=== PATIENT | female | born 1965 | race Caucasian/White ===

== ENCOUNTER 2019-04-25 15:18 | Inpatient (IN) | payer MEDICARE ==
[2019-04-25 23:01] VITALS: BP 99/58
[2019-04-25] MEDS ORDERED: Magnesium Hydroxide (MOM) 30 mL UDC PO PRN (23:01)
[2019-04-25] MEDS ORDERED: Maalox 30 mL Cup PO PRN (23:01)
[2019-04-26] MEDS ORDERED: Non-Formulary Item 1 EA (Buspirone Hcl [Buspirone Hcl] 10 MG) PO SCH (09:00)
--- NOTE | 2019-04-27 00:58 | Psychiatric Evaluation ---
DATE OF SERVICE: 04/26/2019 HISTORY OF PRESENT ILLNESS: A 54-year-old female, currently transferred from [place] after clearance to the Geropsych Unit coming from what appears to be a longterm facility, agitation and aggressive behaviors, could not be cared for at a lower level of care. The patient is a pretty poor historian. I really have no idea what she is trying to tell me as she is very tangential and disorganized, nonsensical, telling different stories, essentially flight of ideas. Staff noting she requires a lot of redirection, odd, bizarre, wearing a lot of gloves on her hands. PAST PSYCHIATRIC HISTORY: The patient alludes to having history of bipolar. Per documentation, the patient has a history of bipolar. FAMILY HISTORY: Unclear, poor historian. SOCIAL HISTORY: The patient was born in [place]. States that she is not , no kids. Upon further review of her chart, it seems that perhaps she is actually coming from a [facility], not a longterm facility, so it seems that perhaps she was unruly at a [facility] type shelter facility. The patient not answering questions about any drug or tobacco use, unclear if she drinks or not. 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 MEDICAL HISTORY: Noted including Zyprexa and Remeron. MENTAL STATUS EXAMINATION: Unkempt, bizarre, wearing a lot of gloves, noted to be loud at one point, starts to escalate, starts pointing at me and yelling a lot, not making much sense. Unclear SI or HI, seems psychotic. Poor insight. PROVISIONAL DIAGNOSES: Bipolar. MEDICAL: Please see full H and P. ESTIMATED LENGTH OF STAY: 7-10 days. ASSESSMENT: The patient requiring hospitalization, unruly, agitated, appears unstable tangential and disorganized thought processes, escalates on the unit. Treatment plan includes group as well as milieu therapy. Restart Zyprexa, Remeron. We will make appropriate medication adjustments. CONDITIONS FOR DISCHARGE: Improved mood, improved affect, better control of her mood symptoms and agitation. JOB# [id number]
--- NOTE | 2019-04-27 14:26 | History & Physical ---
ADMIT DATE: 04/26/2019 CHIEF COMPLAINT: Continuation of care of the patient who is medically cleared. HISTORY OF PRESENT ILLNESS: The patient is a 54-year-old female who is medically cleared from [facility] who is a senior care resident, admitted to the Geropsych Unit due to increase in agitation and being sexually inappropriate towards nursing staff at the SNF. For this reason, the patient is now admitted here. PAST MEDICAL HISTORY: Acute renal failure, UTI, major depressive disorder, hypertension, anxiety, bipolar, anemia. PAST SURGICAL HISTORY: Unknown. ALLERGIES: No drug allergies. HOME MEDICATIONS: See medication list. SOCIAL HISTORY: The patient is a senior care resident. The patient also smokes cigarettes. FAMILY HISTORY: Noncontributory. REVIEW OF SYSTEMS: GENERAL: Denies fever or chills. CARDIOVASCULAR: Denies chest pain. RESPIRATORY: Denies shortness of breath. GASTROINTESTINAL: Denies nausea, vomiting, abdominal pain. GENITOURINARY: Denies increased frequency. NEUROLOGIC: No seizures or syncope. All other systems reviewed and are negative. PHYSICAL EXAMINATION: EXTREMITIES: The patient is a well-developed, well-nourished, in no apparent distress. VITAL SIGNS: Temperature 97.7, heart rate 75, blood pressure 92/71, respirations 18, O2 100%. HEENT: Head; normocephalic, atraumatic. NECK: Supple. No mass. LUNGS: Clear bilaterally. ABDOMEN: Soft, nontender. ASSESSMENT: Acute renal failure, hypertension, anxiety, bipolar, anemia. PLAN: Fall precautions being initiated. Continue routine medications. We will continue to follow this patient. [facility]# [id number]
--- NOTE | 2019-04-27 21:09 | Progress Notes ---
DATE: 04/27/2019 SUBJECTIVE: The patient is agitated, labile, demanding, intrusive, throws a glove at me, threatening staff, poor orientation, aggressive at times, posturing, verbally aggressive, anxious, restless, preoccupied, ruminative, asking for smoke breaks all the time. ASSESSMENT: The patient remains symptomatic, unruly, psychotic, disorganized, not really making too much sounds on exam. PLAN: We will continue to monitor. The patient remains agitated, aggressive, very impulsive, unpredictable. We are titrating her dosing of medications. JOB# [id number]
--- NOTE | 2019-04-28 18:32 | Internal Medicine Prog Note ---
Internal Medicine Subjective - Subjective Service Date: 04/28/19 Patient seen and examined:: with staff Patient is:: awake, verbal Per staff patient has:: tolerating meds Internal Medicine Objective - Physical Exam Vitals and I&O: Vital Signs Temp 98.2 F 04/28/19 14:00 Pulse 100 04/28/19 14:00 Resp 20 04/28/19 14:00 BP 105/68 04/28/19 14:00 Pulse Ox 95 04/28/19 14:00 Intake & Output 04/27/19 04/28/19 04/28/19 18:59 06:59 18:59 Intake Total 0425 427 8305 Balance 4266 131 1839 Intake: Oral 7620 745 0767 Other: # Voids 4 2 # Bowel Movements 1 0 1 Active Medications: Current Medications Acetaminophen (Tylenol) 650 mg PO Q4H PRN PRN Reason: Pain (Mild 1-3) Stop: 06/24/19 23:00 Acetaminophen (Tylenol) 650 mg PO Q4H PRN PRN Reason: temp.>100.4 Stop: 06/25/19 01:20 Al Hydrox/Mg Hydrox/Simethicone (Maalox) 30 ml PO Q4HR PRN PRN Reason: GI DISTRESS Stop: 06/24/19 23:00 Buspirone HCl (Buspar) 10 mg PO TID [facility]; Protocol Stop: 06/25/19 08:59 Last Admin: 04/28/19 14:09 Dose: 10 mg Divalproex Sodium (Depakote Dr) 500 mg PO BID [facility]; Protocol Stop: 06/26/19 16:59 Last Admin: 04/28/19 16:17 Dose: 500 mg Gabapentin (Neurontin) 300 mg PO DAILY [facility] Stop: 06/25/19 08:59 Last Admin: 04/28/19 08:12 Dose: 300 mg Lisinopril (Zestril) 20 mg PO DAILY [facility] Stop: 06/25/19 08:59 Last Admin: 04/28/19 08:13 Dose: 20 mg Lorazepam (Ativan) 0.5 mg PO Q4HR PRN; Protocol PRN Reason: Anxiety Stop: 05/25/19 23:00 Last Admin: 04/28/19 16:16 Dose: 0.5 mg Magnesium Hydroxide (Milk Of Magnesia) 30 ml PO HS PRN PRN Reason: Constipation Mirtazapine (Remeron) 15 mg PO HS [facility]; Protocol Stop: 06/25/19 20:59 Last Admin: 04/27/19 21:00 Dose: 15 mg Naproxen (Naprosyn) 500 mg PO BIDWM [facility] Stop: 06/25/19 07:59 Last Admin: 04/28/19 17:24 Dose: 500 mg Olanzapine (Zyprexa) 20 mg PO BID [facility]; Protocol Stop: 06/25/19 08:59 Last Admin: 04/28/19 16:17 Dose: 20 mg Zolpidem Tartrate (Ambien) 5 mg PO HS PRN PRN Reason: Insomnia Stop: 06/24/19 23:00 Last Admin: 04/27/19 21:53 Dose: 5 mg General: alert HEENT: NC/AT, PERRLA Neck: Supple Lungs: CTAB Cardiovascular: RRR, Normal S1, Normal S2, without murmur Abdomen: soft, non-tender, non-distended, positive bowel sound Neurological: alert Internal Medicine Assmt/Plan - Assessment Assessment: ASSESSMENT: Acute renal failure, hypertension, anxiety, bipolar, anemia. - Plan Plan: PLAN: Fall precautions being initiated. Continue routine medications. We will continue to follow this patient.
--- NOTE | 2019-04-28 20:22 | Progress Notes ---
DATE: 04/28/2019 Case was discussed with staff of the patient, reviewed records. Covering for Dr. Crawford. This is a 54-year-old female who was admitted on 04/25/2019, transferred from [place] after clearance for Geropsych Unit from what appears to be a custodial facility because of agitation, aggressive behavior, could not be cared for at a lower level of care. The patient was a poor historian. She has no idea why she is here. The patient with a history of bipolar disorder. When I talked to her, she was rambling. She was going through circles, giving a lot of details that was not needed and had been aggressive at times , verbally aggressive, restless, internally preoccupied. Continues to be unruly, disorganized. She has been compliant with the medication with no side effects, no sedation, no nausea, and no extrapyramidal symptoms. She is on BuSpar 10 mg 3 times a day, Depakote 500 mg twice a day, and Remeron 15 mg at bedtime and olanzapine 20 mg twice a day with no side effects, no sedation, no nausea, no extrapyramidal symptoms. We will continue the patient in group therapy, milieu therapy, and adjust medications as needed. JOB# [id number] [facility]
--- NOTE | 2019-04-29 11:55 | Progress Notes ---
DATE: 04/29/2019 Case was discussed with staff of the patient, reviewed records. The patient continues to be rambling, easily agitated, and continues to have aggressive behavior at times. Continues to need redirection. Continues to be unable to make safe plan for self-care. She is compliant with the medication with no side effects, no sedation, no nausea, and no extrapyramidal symptoms. We will ____ because of agitated, manic behavior, confused behavior. We will continue the patient in group therapy, milieu therapy, and adjust medications as needed. JOB# [id number]
--- NOTE | 2019-04-29 13:11 | Internal Medicine Prog Note ---
Internal Medicine Subjective - Subjective Service Date: 04/29/19 Patient seen and examined:: with staff, chart reviewed Patient is:: awake, verbal, agitated, confused Patient Complaints of:: other (hx of Htn.) Per staff patient has:: no adverse event, no episodes of fall, tolerating meds Internal Medicine Objective - Physical Exam Vitals and I&O: Vital Signs Temp 98.4 F 04/29/19 06:18 Pulse 89 04/29/19 06:18 Resp 18 04/29/19 08:00 BP 102/60 04/29/19 06:18 Pulse Ox 98 04/29/19 06:18 Intake & Output 04/28/19 04/29/19 04/29/19 18:59 06:59 18:59 Intake Total 1200 240 Output Total 1 Balance 1200 239 Intake: Oral 1200 240 Output: Urine/Stool Mix 1 Other: # Voids 1 # Bowel Movements 1 Active Medications: Current Medications Acetaminophen (Tylenol) 650 mg PO Q4H PRN PRN Reason: Pain (Mild 1-3) Stop: 06/24/19 23:00 Last Admin: 04/28/19 21:29 Dose: 650 mg Acetaminophen (Tylenol) 650 mg PO Q4H PRN PRN Reason: temp.>100.4 Stop: 06/25/19 01:20 Al Hydrox/Mg Hydrox/Simethicone (Maalox) 30 ml PO Q4HR PRN PRN Reason: GI DISTRESS Stop: 06/24/19 23:00 Buspirone HCl (Buspar) 10 mg PO TID [facility]; Protocol Stop: 06/25/19 08:59 Last Admin: 04/29/19 08:32 Dose: 10 mg Divalproex Sodium (Depakote Dr) 500 mg PO BID [facility]; Protocol Stop: 06/26/19 16:59 Last Admin: 04/29/19 08:32 Dose: 500 mg Gabapentin (Neurontin) 300 mg PO DAILY [facility] Stop: 06/25/19 08:59 Last Admin: 04/29/19 08:33 Dose: 300 mg Lisinopril (Zestril) 20 mg PO DAILY [facility] Stop: 06/25/19 08:59 Last Admin: 04/29/19 08:33 Dose: Not Given Lorazepam (Ativan) 0.5 mg PO Q4HR PRN; Protocol PRN Reason: Anxiety Stop: 05/25/19 23:00 Last Admin: 04/28/19 16:16 Dose: 0.5 mg Magnesium Hydroxide (Milk Of Magnesia) 30 ml PO HS PRN PRN Reason: Constipation Mirtazapine (Remeron) 15 mg PO HS [facility]; Protocol Stop: 06/25/19 20:59 Last Admin: 04/28/19 21:29 Dose: 15 mg Naproxen (Naprosyn) 500 mg PO BIDWM [facility] Stop: 06/25/19 07:59 Last Admin: 04/29/19 08:33 Dose: 500 mg Olanzapine (Zyprexa) 20 mg PO BID [facility]; Protocol Stop: 06/25/19 08:59 Last Admin: 04/29/19 08:32 Dose: 20 mg Zolpidem Tartrate (Ambien) 5 mg PO HS PRN PRN Reason: Insomnia Stop: 06/24/19 23:00 Last Admin: 04/28/19 21:29 Dose: 5 mg Physical Exam: Patient needs close monitoring, patient remains very aggressive, irritable, manic behavior. General: alert HEENT: NC/AT, PERRLA Neck: Supple Lungs: CTAB Cardiovascular: RRR, Normal S1, Normal S2, without murmur Abdomen: soft, non-tender, non-distended, distended, positive bowel sound Extremities: clear Neurological: alert Internal Medicine Assmt/Plan - Assessment Assessment: Bipolar disorder. Acute renal failure. Hypertension. Anxiety. Anemia. - Plan Plan: Continue present meds as directed. Monitor vitals and labs. Supportive care. Psych management as per Psych. Pain management. Monitor diet and nutritional support. Continue current treatment plan as ordered. Nutritional Asmnt/Malnutr-PDOC - Dietary Evaluation Malnutrition Findings (Please click <Entered> for more info): see orders.
--- NOTE | 2019-04-30 08:43 | Progress Notes ---
DATE: 04/30/2019 SUBJECTIVE: The patient was seen in the hallway. The patient was wandering around. The patient still has some poor impulse control and impulsive behaviors. Otherwise, the patient appears to be in no acute distress. OBJECTIVE: VITAL SIGNS: Temperature 97.8, heart rate 91, respirations 19, blood pressure 133/76, 97% on room air. HEENT: Head is atraumatic and normocephalic. Eyes: Bilateral conjunctivae are clear. Bilateral pupils are equally round and reactive. NECK: Supple. No JVD. CARDIOVASCULAR: S1 and S2, without murmur. PULMONARY: Clear to auscultation. GASTROINTESTINAL: Soft and nontender without guarding. Positive bowel sounds. MUSCULOSKELETAL: No clubbing. No cyanosis noted. ASSESSMENT: 1. Bipolar disorder. 2. Hypertension. 3. Anemia. PLAN: We will keep the patient inpatient to Psychiatric Unit. We will put the patient on fall precautions. Treatment plans were discussed with the patient's nurse. Treatment plans were discussed with Dr. Ocnonell. JOB# [id number]
--- NOTE | 2019-04-30 19:30 | Progress Notes ---
DATE: 04/30/2019 Case was discussed with staff of the patient, reviewed records. The patient continues to have poor insight, easily agitated, very intrusive, loud, needing redirection, unable to make safe plan for self-care or participate in meaningful conversation. She is compliant with the medication with no side effects, no sedation, no nausea, no extrapyramidal symptoms. We will continue the patient in group therapy, milieu therapy, adjust medication as needed. JOB# [id number]
--- NOTE | 2019-05-01 14:07 | Internal Medicine Prog Note ---
Internal Medicine Subjective - Subjective Service Date: 05/01/19 Patient seen and examined:: with staff Patient is:: awake, verbal, agitated, confused Patient Complaints of:: other (hx of Htn.) Per staff patient has:: no adverse event, no episodes of fall, tolerating meds Internal Medicine Objective - Physical Exam Vitals and I&O: Vital Signs Temp 98.4 F 05/01/19 06:58 Pulse 98 05/01/19 08:39 Resp 19 05/01/19 06:58 BP 108/59 05/01/19 08:39 Pulse Ox 99 05/01/19 06:58 Intake & Output 04/30/19 05/01/19 05/01/19 18:59 06:59 18:59 Intake Total 1000 360 Balance 1000 360 Intake: Oral 1000 360 Other: # Voids 4 1 # Bowel Movements 1 Active Medications: Current Medications Acetaminophen (Tylenol) 650 mg PO Q4H PRN PRN Reason: Pain (Mild 1-3) Stop: 06/24/19 23:00 Last Admin: 04/29/19 20:46 Dose: 650 mg Acetaminophen (Tylenol) 650 mg PO Q4H PRN PRN Reason: temp.>100.4 Stop: 06/25/19 01:20 Al Hydrox/Mg Hydrox/Simethicone (Maalox) 30 ml PO Q4HR PRN PRN Reason: GI DISTRESS Stop: 06/24/19 23:00 Buspirone HCl (Buspar) 10 mg PO TID [facility]; Protocol Stop: 06/25/19 08:59 Last Admin: 05/01/19 13:02 Dose: 10 mg Divalproex Sodium (Depakote Dr) 500 mg PO BID [facility]; Protocol Stop: 06/26/19 16:59 Last Admin: 05/01/19 08:37 Dose: 500 mg Gabapentin (Neurontin) 300 mg PO DAILY [facility] Stop: 06/25/19 08:59 Last Admin: 05/01/19 08:38 Dose: 300 mg Lisinopril (Zestril) 20 mg PO DAILY [facility] Stop: 06/25/19 08:59 Last Admin: 05/01/19 08:39 Dose: Not Given Lorazepam (Ativan) 0.5 mg PO Q4HR PRN; Protocol PRN Reason: Anxiety Stop: 05/25/19 23:00 Last Admin: 02/22/20 13:45 Dose: 0.5 mg Magnesium Hydroxide (Milk Of Magnesia) 30 ml PO HS PRN PRN Reason: Constipation Mirtazapine (Remeron) 15 mg PO HS [facility]; Protocol Stop: 06/25/19 20:59 Last Admin: 04/30/19 21:05 Dose: 15 mg Naproxen (Naprosyn) 500 mg PO BIDWM [facility] Stop: 06/25/19 07:59 Last Admin: 05/01/19 08:38 Dose: 500 mg Olanzapine (Zyprexa) 20 mg PO BID [facility]; Protocol Stop: 06/25/19 08:59 Last Admin: 05/01/19 08:36 Dose: 20 mg Zolpidem Tartrate (Ambien) 5 mg PO HS PRN PRN Reason: Insomnia Stop: 06/24/19 23:00 Last Admin: 04/30/19 21:05 Dose: 5 mg Physical Exam: Patient needs close monitoring, patient is very demented, easily frustrated and agitated. General: alert HEENT: NC/AT, PERRLA Neck: Supple Lungs: CTAB Cardiovascular: RRR, Normal S1, Normal S2, without murmur Abdomen: soft, non-tender, non-distended, distended, positive bowel sound Extremities: clear Neurological: alert Internal Medicine Assmt/Plan - Assessment Assessment: Bipolar disorder. Acute renal failure. Hypertension. Anxiety. Anemia. - Plan Plan: Continue present meds as directed. Monitor vitals and labs. Supportive care. Psych management as per Psych. Pain management. Monitor diet and nutritional support. Continue current treatment plan as ordered. Nutritional Asmnt/Malnutr-PDOC - Dietary Evaluation Malnutrition Findings (Please click <Entered> for more info): Nutritional Asmnt/Malnutrition Start: 05/01/19 12: 37 Text: Status: Complete Freq: Protocol: Document 05/01/19 12:38 GALINA (Rec: 05/01/19 12:40 GALINA [id number]) Nutritional Asmnt/Malnutrition Patient General Information Nutritional Screening Low Risk Diagnosis Psychosis Pertinent Medical Hx/Surgical Hx Acute Renal Failure, UTI, Major Depressive disorder, HTN , Anxiety, Bipolar, Anemia. Subjective Information Pt is a 54-year-old female admitted on 04/25 d/t increased agitation and sexual inappropriateness toward medical staff. Pt is eating an estimated 88% of meals since admit date (x5 days) Per Meal/ Nutrition Activity Record. Dietary is currently providing an estimated 1940 kcals and 80 gm Pro, per Pt PO intake this is providing an estimated 1700 kcals and 70gm Pro to meet 100% kcal and 100% Pro needs. Visited pt in community room today, she gave me her food preferences and said she wanted a chocolate Ensure as a snack because another pt next to her was having one. Gave her an Ensure. Pt is loud and gets agitated easily, was yelling at another pt, telling him to be quiet when we were talking. Pt is eating well and meeting estimated nutritional needs. Pt has Altered nutrition related labs r/t renal dysfunction aeb Hx ARF and labs (04/25): BUN/Cr 21/1.67, GFR 34. Will continue to monitor renal related labs and make further recommendations should K, P, or Ca levels elevate, [place] already included in current Diet Rx. Anthropometrics HT: 59 WT: 142 LB (64.55 kg) BMI: 21.02 (Normal) GI/ Skin Integrity GI: WNL, Soft, Flat, Non- tender BM: 04/30 x1 I/O: 1360/Not Noted Skin: WNL, Intact Braulio: 20 Diet Order: Mechanical Soft, [place] Estimated Energy Needs: ( Geriatric, CBW) 8806-2365 kcals (25-30 kcals/ kg) 65-80g Pro (1.0-1.2 g/kg) 8548-4721 ml (25-30 ml/kg) Current Diet Order/ Nutrition Support Mechanical Soft, [place] Pertinent Medications Maalox (PRN), MOM (PRN) Pertinent Labs 04/25: A1c 5.5%, Na 133, Glucose 100, BUN/Cr 21/1.67, GFR 34, Tags 152, HDL 38, Hgb/ Hct 10.5/31.4 Nutritional Hx/Data Height 1.75 m Height (Calculated Centimeters) 175.3 Current Weight (lbs) 64.41 kg Weight (Calculated Kilograms) 64.4 Weight (Calculated Grams) 14742.1 Wesley Body Weight 145 LB (65.91 kg) % [place] Body Weight 98 Body Mass Index (BMI) 20.9 Weight Status Approriate GI Symptoms Last BM 04/30 x1 Skin Integrity/Comment: Skin: WNL, Intact Braulio: 20 Current %PO Good (75-100%) Estimated Nutritional Goals BEE in Kcals: Using Current wt Calories/Kcals/Kg 25-30 Kcals Calculated 5344-5844 Protein: Using Current wt Protein g/k.0-1.2 Protein Calculated 65-80 Fluid: ml 6744-4732 ml (25-30 ml/kg) Nutritional Problem 1. Problem Problem Altered nutrition related labs Etiology r/t renal dysfunction Signs/Symptoms: aeb Hx ARF and labs (04/25): BUN/Cr 21/1.67, GFR 34. Malnutrition Related to Morbid Obesity Malnutrition related to morbid obesity No Intervention/Recommendation Comments Continue Mechanical Soft, [place] diet as tolerated. Expected Outcomes/Goals Expected Outcomes/Goals 1.PO intake to continue to meet >75% of estimated nutritional needs. 2.Monitor PO intake, wt, nutrition related labs, and skin integrity. 3.F/U as low risk in 7-10 days , 05/07-05/09.
--- NOTE | 2019-05-01 20:15 | Progress Notes ---
DATE: 05/01/2019 Case was discussed with staff of the patient, reviewed records. The patient continues to be very intrusive, loud, hyperverbal, hard to redirect. She is sleeping well, eating well. No side effects with the medication, no sedation, no nausea, no extrapyramidal symptoms. We will continue outpatient group therapy, milieu therapy, adjust medication as needed. JOB# [id number]
--- NOTE | 2019-05-02 11:02 | Internal Medicine Prog Note ---
Internal Medicine Subjective - Subjective Service Date: 05/01/19 Patient seen and examined:: with staff, chart reviewed Patient is:: awake, verbal, agitated, confused Patient Complaints of:: other (hx of Htn.) Per staff patient has:: no adverse event, no episodes of fall, tolerating meds Internal Medicine Objective - Physical Exam Vitals and I&O: Vital Signs Temp 97.2 F 05/02/19 06:33 Pulse 72 05/02/19 08:44 Resp 18 05/02/19 08:00 BP 112/69 05/02/19 08:44 Pulse Ox 100 05/02/19 06:33 Intake & Output 05/01/19 05/02/19 05/02/19 18:59 06:59 18:59 Intake Total 1400 120 Balance 1400 120 Intake: Oral 1400 120 Other: # Voids 5 3 # Bowel Movements 1 Active Medications: Current Medications Acetaminophen (Tylenol) 650 mg PO Q4H PRN PRN Reason: Pain (Mild 1-3) Stop: 06/24/19 23:00 Last Admin: 04/29/19 20:46 Dose: 650 mg Acetaminophen (Tylenol) 650 mg PO Q4H PRN PRN Reason: temp.>100.4 Stop: 06/25/19 01:20 Al Hydrox/Mg Hydrox/Simethicone (Maalox) 30 ml PO Q4HR PRN PRN Reason: GI DISTRESS Stop: 06/24/19 23:00 Buspirone HCl (Buspar) 10 mg PO TID [facility]; Protocol Stop: 06/25/19 08:59 Last Admin: 05/02/19 08:43 Dose: 10 mg Divalproex Sodium (Depakote Dr) 500 mg PO BID [facility]; Protocol Stop: 06/26/19 16:59 Last Admin: 05/02/19 08:43 Dose: 500 mg Gabapentin (Neurontin) 300 mg PO DAILY [facility] Stop: 06/25/19 08:59 Last Admin: 05/02/19 08:44 Dose: 300 mg Lisinopril (Zestril) 20 mg PO DAILY [facility] Stop: 06/25/19 08:59 Last Admin: 05/02/19 08:44 Dose: 20 mg Lorazepam (Ativan) 0.5 mg PO Q4HR PRN; Protocol PRN Reason: Anxiety Stop: 05/25/19 23:00 Last Admin: 05/01/19 15:44 Dose: 0.5 mg Magnesium Hydroxide (Milk Of Magnesia) 30 ml PO HS PRN PRN Reason: Constipation Mirtazapine (Remeron) 15 mg PO HS [facility]; Protocol Stop: 06/25/19 20:59 Last Admin: 05/01/19 20:09 Dose: 15 mg Naproxen (Naprosyn) 500 mg PO BIDWM [facility] Stop: 06/25/19 07:59 Last Admin: 05/02/19 08:44 Dose: 500 mg Olanzapine (Zyprexa) 20 mg PO BID [facility]; Protocol Stop: 06/25/19 08:59 Last Admin: 05/02/19 08:44 Dose: 20 mg Zolpidem Tartrate (Ambien) 5 mg PO HS PRN PRN Reason: Insomnia Stop: 06/24/19 23:00 Last Admin: 05/01/19 20:09 Dose: 5 mg Physical Exam: Patient needs close monitoring, patient is anxious, irritable and easily agitated. General: alert HEENT: NC/AT, PERRLA Neck: Supple Lungs: CTAB Cardiovascular: RRR, Normal S1, Normal S2, without murmur Abdomen: soft, non-tender, non-distended, distended, positive bowel sound Extremities: clear Neurological: alert Internal Medicine Assmt/Plan - Assessment Assessment: Bipolar disorder. Acute renal failure. Hypertension. Anxiety. Anemia. - Plan Plan: ontinue present meds as directed. Monitor vitals and labs. Supportive care. Psych management as per Psych. Pain management. Monitor diet and nutritional support. Continue current treatment plan as ordered. Nutritional Asmnt/Malnutr-PDOC - Dietary Evaluation Malnutrition Findings (Please click <Entered> for more info): Nutritional Asmnt/Malnutrition Start: 05/01/19 12: 37 Text: Status: Complete Freq: Protocol: Document 05/01/19 12:38 GALINA (Rec: 05/01/19 12:40 GALINA [id number]) Nutritional Asmnt/Malnutrition Patient General Information Nutritional Screening Low Risk Diagnosis Psychosis Pertinent Medical Hx/Surgical Hx Acute Renal Failure, UTI, Major Depressive disorder, HTN , Anxiety, Bipolar, Anemia. Subjective Information Pt is a 54-year-old female admitted on 04/25 d/t increased agitation and sexual inappropriateness toward medical staff. Pt is eating an estimated 88% of meals since admit date (x5 days) Per Meal/ Nutrition Activity Record. Dietary is currently providing an estimated 1940 kcals and 80 gm Pro, per Pt PO intake this is providing an estimated 1700 kcals and 70gm Pro to meet 100% kcal and 100% Pro needs. Visited pt in community room today, she gave me her food preferences and said she wanted a chocolate Ensure as a snack because another pt next to her was having one. Gave her an Ensure. Pt is loud and gets agitated easily, was yelling at another pt, telling him to be quiet when we were talking. Pt is eating well and meeting estimated nutritional needs. Pt has Altered nutrition related labs r/t renal dysfunction aeb Hx ARF and labs (04/25): BUN/Cr 21/1.67, GFR 34. Will continue to monitor renal related labs and make further recommendations should K, P, or Ca levels elevate, [place] already included in current Diet Rx. Anthropometrics HT: 59 WT: 142 LB (64.55 kg) BMI: 21.02 (Normal) GI/ Skin Integrity GI: WNL, Soft, Flat, Non- tender BM: 04/30 x1 I/O: 1360/Not Noted Skin: WNL, Intact Braulio: 20 Diet Order: Mechanical Soft, [place] Estimated Energy Needs: ( Geriatric, CBW) 1600-2857 kcals (25-30 kcals/ kg) 65-80g Pro (1.0-1.2 g/kg) 6865-6473 ml (25-30 ml/kg) Current Diet Order/ Nutrition Support Mechanical Soft, [place] Pertinent Medications Maalox (PRN), MOM (PRN) Pertinent Labs 04/25: A1c 5.5%, Na 133, Glucose 100, BUN/Cr 21/1.67, GFR 34, Tags 152, HDL 38, Hgb/ Hct 10.5/31.4 Nutritional Hx/Data Height 1.75 m Height (Calculated Centimeters) 175.3 Current Weight (lbs) 64.41 kg Weight (Calculated Kilograms) 64.4 Weight (Calculated Grams) 58121.1 [place] Body Weight 145 LB (65.91 kg) % [place] Body Weight 98 Body Mass Index (BMI) 20.9 Weight Status Approriate GI Symptoms Last BM 04/30 x1 Skin Integrity/Comment: Skin: WNL, Intact Braulio: 20 Current %PO Good (75-100%) Estimated Nutritional Goals BEE in Kcals: Using Current wt Calories/Kcals/Kg 25-30 Kcals Calculated 1485-2368 Protein: Using Current wt Protein g/k.0-1.2 Protein Calculated 65-80 Fluid: ml 6174-8029 ml (25-30 ml/kg) Nutritional Problem 1. Problem Problem Altered nutrition related labs Etiology r/t renal dysfunction Signs/Symptoms: aeb Hx ARF and labs (04/25): BUN/Cr 21/1.67, GFR 34. Malnutrition Related to Morbid Obesity Malnutrition related to morbid obesity No Intervention/Recommendation Comments Continue Mechanical Soft, [place] diet as tolerated. Expected Outcomes/Goals Expected Outcomes/Goals 1.PO intake to continue to meet >75% of estimated nutritional needs. 2.Monitor PO intake, wt, nutrition related labs, and skin integrity. 3.F/U as low risk in 7-10 days , 05/07-05/09.
--- NOTE | 2019-05-02 15:03 | Progress Notes ---
DATE: 05/02/2019 Case was discussed with staff of the patient, reviewed records. The patient continues to be hyperverbal. Continues to be loud, hard to redirect, sleeping better, and eating better. Working on discharge plan. I will be increasing her BuSpar dose 20 mg 3 times a day to help improve anxiety or agitated behavior. No side effects with the medication, no sedation, no nausea, no extrapyramidal symptoms. We will continue outpatient group therapy, milieu therapy, and adjust medication as needed. JOB# [id number]
--- NOTE | 2019-05-03 12:26 | Internal Medicine Prog Note ---
Internal Medicine Subjective - Subjective Service Date: 05/03/19 Patient seen and examined:: with staff, chart reviewed Patient is:: awake, verbal, agitated, confused Patient Complaints of:: other (hx of Htn.) Per staff patient has:: no adverse event, no episodes of fall, tolerating meds Internal Medicine Objective - Physical Exam Vitals and I&O: Vital Signs Temp 97.2 F 05/02/19 20:51 Pulse 95 05/02/19 20:51 Resp 20 05/02/19 20:51 BP 94/77 05/02/19 20:51 Pulse Ox 99 05/02/19 20:51 Intake & Output 05/02/19 05/03/19 05/03/19 18:59 06:59 18:59 Intake Total 1200 240 Balance 1200 240 Intake: Oral 1200 240 Other: # Voids 4 2 # Bowel Movements 1 Active Medications: Current Medications Acetaminophen (Tylenol) 650 mg PO Q4H PRN PRN Reason: Pain (Mild 1-3) Stop: 06/24/19 23:00 Last Admin: 04/29/19 20:46 Dose: 650 mg Acetaminophen (Tylenol) 650 mg PO Q4H PRN PRN Reason: temp.>100.4 Stop: 06/25/19 01:20 Al Hydrox/Mg Hydrox/Simethicone (Maalox) 30 ml PO Q4HR PRN PRN Reason: GI DISTRESS Stop: 06/24/19 23:00 Buspirone HCl (Buspar) 20 mg PO TID [facility]; Protocol Stop: 07/01/19 13:59 Last Admin: 05/03/19 08:02 Dose: 20 mg Divalproex Sodium (Depakote Dr) 500 mg PO BID [facility]; Protocol Stop: 06/26/19 16:59 Last Admin: 05/03/19 08:02 Dose: 500 mg Gabapentin (Neurontin) 300 mg PO DAILY [facility] Stop: 06/25/19 08:59 Last Admin: 05/03/19 08:01 Dose: 300 mg Lisinopril (Zestril) 20 mg PO DAILY [facility] Stop: 06/25/19 08:59 Last Admin: 05/02/19 08:44 Dose: 20 mg Magnesium Hydroxide (Milk Of Magnesia) 30 ml PO HS PRN PRN Reason: Constipation Mirtazapine (Remeron) 15 mg PO HS [facility]; Protocol Stop: 06/25/19 20:59 Last Admin: 05/02/19 20:32 Dose: 15 mg Naproxen (Naprosyn) 500 mg PO BIDWM [facility] Stop: 06/25/19 07:59 Last Admin: 05/03/19 08:05 Dose: 500 mg Olanzapine (Zyprexa) 20 mg PO BID [facility]; Protocol Stop: 06/25/19 08:59 Last Admin: 05/03/19 08:01 Dose: 20 mg Physical Exam: Patient needs close monitoring, patient is restless, easily frustrated. General: alert HEENT: NC/AT, PERRLA Neck: Supple Lungs: CTAB Cardiovascular: RRR, Normal S1, Normal S2, without murmur Abdomen: soft, non-tender, non-distended, distended, positive bowel sound Extremities: clear Neurological: alert Internal Medicine Assmt/Plan - Assessment Assessment: Bipolar disorder. Acute renal failure. Hypertension. Anxiety. Anemia. - Plan Plan: Continue present meds as directed. Monitor vitals and labs. Supportive care. Psych management as per Psych. Pain management. Monitor diet and nutritional support. Continue present care management. Nutritional Asmnt/Malnutr-PDOC - Dietary Evaluation Malnutrition Findings (Please click <Entered> for more info): Nutritional Asmnt/Malnutrition Start: 05/01/19 12: 37 Text: Status: Complete Freq: Protocol: Document 05/01/19 12:38 GALINA (Rec: 05/01/19 12:40 GALINA [id number]) Nutritional Asmnt/Malnutrition Patient General Information Nutritional Screening Low Risk Diagnosis Psychosis Pertinent Medical Hx/Surgical Hx Acute Renal Failure, UTI, Major Depressive disorder, HTN , Anxiety, Bipolar, Anemia. Subjective Information Pt is a 54-year-old female admitted on 04/25 d/t increased agitation and sexual inappropriateness toward medical staff. Pt is eating an estimated 88% of meals since admit date (x5 days) Per Meal/ Nutrition Activity Record. Dietary is currently providing an estimated 1940 kcals and 80 gm Pro, per Pt PO intake this is providing an estimated 1700 kcals and 70gm Pro to meet 100% kcal and 100% Pro needs. Visited pt in community room today, she gave me her food preferences and said she wanted a chocolate Ensure as a snack because another pt next to her was having one. Gave her an Ensure. Pt is loud and gets agitated easily, was yelling at another pt, telling him to be quiet when we were talking. Pt is eating well and meeting estimated nutritional needs. Pt has Altered nutrition related labs r/t renal dysfunction aeb Hx ARF and labs (04/25): BUN/Cr 21/1.67, GFR 34. Will continue to monitor renal related labs and make further recommendations should K, P, or Ca levels elevate, [place] already included in current Diet Rx. Anthropometrics HT: 59 WT: 142 LB (64.55 kg) BMI: 21.02 (Normal) GI/ Skin Integrity GI: WNL, Soft, Flat, Non- tender BM: 04/30 x1 I/O: 1360/Not Noted Skin: WNL, Intact Braulio: 20 Diet Order: Mechanical Soft, [place] Estimated Energy Needs: ( Geriatric, CBW) 0455-0954 kcals (25-30 kcals/ kg) 65-80g Pro (1.0-1.2 g/kg) 1536-8502 ml (25-30 ml/kg) Current Diet Order/ Nutrition Support Mechanical Soft, [place] Pertinent Medications Maalox (PRN), MOM (PRN) Pertinent Labs 04/25: A1c 5.5%, Na 133, Glucose 100, BUN/Cr 21/1.67, GFR 34, Tags 152, HDL 38, Hgb/ Hct 10.5/31.4 Nutritional Hx/Data Height 1.75 m Height (Calculated Centimeters) 175.3 Current Weight (lbs) 64.41 kg Weight (Calculated Kilograms) 64.4 Weight (Calculated Grams) 66956.1 [place] Body Weight 145 LB (65.91 kg) % [place] Body Weight 98 Body Mass Index (BMI) 20.9 Weight Status Approriate GI Symptoms Last BM 04/30 x1 Skin Integrity/Comment: Skin: WNL, Intact Braulio: 20 Current %PO Good (75-100%) Estimated Nutritional Goals BEE in Kcals: Using Current wt Calories/Kcals/Kg 25-30 Kcals Calculated 3821-5615 Protein: Using Current wt Protein g/k.0-1.2 Protein Calculated 65-80 Fluid: ml 2187-0440 ml (25-30 ml/kg) Nutritional Problem 1. Problem Problem Altered nutrition related labs Etiology r/t renal dysfunction Signs/Symptoms: aeb Hx ARF and labs (04/25): BUN/Cr 21/1.67, GFR 34. Malnutrition Related to Morbid Obesity Malnutrition related to morbid obesity No Intervention/Recommendation Comments Continue Mechanical Soft, [place] diet as tolerated. Expected Outcomes/Goals Expected Outcomes/Goals 1.PO intake to continue to meet >75% of estimated nutritional needs. 2.Monitor PO intake, wt, nutrition related labs, and skin integrity. 3.F/U as low risk in 7-10 days , 05/07-05/09.
--- NOTE | 2019-05-04 01:04 | Progress Notes ---
DATE: 05/03/2019 Case was discussed with staff of the patient, reviewed records. The patient continues to have poor insight, loud, intrusive, hard to redirect. Continues to have poor insight, unable to make safe plan for self-care. She is sleeping well, eating well. She has a conservator. She will be going back to a nursing facility. She is ready to go. No side effects with the medications, no sedation, no nausea. No extrapyramidal symptoms. We will continue outpatient group therapy, milieu therapy and adjust the medications as needed. JOB# [id number]
--- NOTE | 2019-05-04 13:37 | Internal Medicine Prog Note ---
Internal Medicine Subjective - Subjective Service Date: 05/04/19 Patient seen and examined:: with staff, chart reviewed Patient is:: awake, verbal, agitated, confused Patient Complaints of:: other (hx of Htn.) Per staff patient has:: no adverse event, no episodes of fall, tolerating meds Internal Medicine Objective - Physical Exam Vitals and I&O: Vital Signs Temp 97.8 F 05/04/19 06:44 Pulse 110 05/04/19 08:24 Resp 20 05/04/19 08:00 BP 108/67 05/04/19 08:24 Pulse Ox 100 05/04/19 06:44 Intake & Output 05/03/19 05/04/19 05/04/19 18:59 06:59 18:59 Intake Total 1200 120 Balance 1200 120 Intake: Oral 1200 120 Other: # Voids 4 3 # Bowel Movements 1 0 Stool Characteristics Formed [place] Active Medications: Current Medications Acetaminophen (Tylenol) 650 mg PO Q4H PRN PRN Reason: Pain (Mild 1-3) Stop: 06/24/19 23:00 Last Admin: 04/29/19 20:46 Dose: 650 mg Acetaminophen (Tylenol) 650 mg PO Q4H PRN PRN Reason: temp.>100.4 Stop: 06/25/19 01:20 Al Hydrox/Mg Hydrox/Simethicone (Maalox) 30 ml PO Q4HR PRN PRN Reason: GI DISTRESS Stop: 06/24/19 23:00 Buspirone HCl (Buspar) 20 mg PO TID [facility]; Protocol Stop: 07/01/19 13:59 Last Admin: 05/04/19 08:28 Dose: 20 mg Divalproex Sodium (Depakote Dr) 500 mg PO BID [facility]; Protocol Stop: 06/26/19 16:59 Last Admin: 05/04/19 08:27 Dose: 500 mg Gabapentin (Neurontin) 300 mg PO TID [facility] Stop: 07/03/19 13:59 Lisinopril (Zestril) 20 mg PO DAILY [facility] Stop: 06/25/19 08:59 Last Admin: 05/04/19 08:24 Dose: Not Given Magnesium Hydroxide (Milk Of Magnesia) 30 ml PO HS PRN PRN Reason: Constipation Mirtazapine (Remeron) 15 mg PO HS [facility]; Protocol Stop: 06/25/19 20:59 Last Admin: 05/03/19 20:17 Dose: 15 mg Naproxen (Naprosyn) 500 mg PO BIDWM [facility] Stop: 06/25/19 07:59 Last Admin: 05/04/19 08:27 Dose: 500 mg Olanzapine (Zyprexa) 20 mg PO BID [facility]; Protocol Stop: 06/25/19 08:59 Last Admin: 05/04/19 08:26 Dose: 20 mg Physical Exam: Patient needs close monitoring, patient is very loud, non-cooperative and has very poor judgment. General: alert HEENT: NC/AT, PERRLA Neck: Supple Lungs: CTAB Cardiovascular: RRR, Normal S1, Normal S2, without murmur Abdomen: soft, non-tender, non-distended, distended, positive bowel sound Extremities: clear Neurological: alert Internal Medicine Assmt/Plan - Assessment Assessment: Bipolar disorder. Acute renal failure. Hypertension. Anxiety. Anemia. - Plan Plan: Continue present meds as directed. Monitor vitals and labs. Supportive care. Psych management as per Psych. Pain management. Monitor diet and nutritional support. Continue present care management. Nutritional Asmnt/Malnutr-PDOC - Dietary Evaluation Malnutrition Findings (Please click <Entered> for more info): Nutritional Asmnt/Malnutrition Start: 05/01/19 12: 37 Text: Status: Complete Freq: Protocol: Document 05/01/19 12:38 GALINA (Rec: 05/01/19 12:40 GALINA [id number]) Nutritional Asmnt/Malnutrition Patient General Information Nutritional Screening Low Risk Diagnosis Psychosis Pertinent Medical Hx/Surgical Hx Acute Renal Failure, UTI, Major Depressive disorder, HTN , Anxiety, Bipolar, Anemia. Subjective Information Pt is a 54-year-old female admitted on 04/25 d/t increased agitation and sexual inappropriateness toward medical staff. Pt is eating an estimated 88% of meals since admit date (x5 days) Per Meal/ Nutrition Activity Record. Dietary is currently providing an estimated 1940 kcals and 80 gm Pro, per Pt PO intake this is providing an estimated 1700 kcals and 70gm Pro to meet 100% kcal and 100% Pro needs. Visited pt in community room today, she gave me her food preferences and said she wanted a chocolate Ensure as a snack because another pt next to her was having one. Gave her an Ensure. Pt is loud and gets agitated easily, was yelling at another pt, telling him to be quiet when we were talking. Pt is eating well and meeting estimated nutritional needs. Pt has Altered nutrition related labs r/t renal dysfunction aeb Hx ARF and labs (04/25): BUN/Cr 21/1.67, GFR 34. Will continue to monitor renal related labs and make further recommendations should K, P, or Ca levels elevate, [place] already included in current Diet Rx. Anthropometrics HT: 59 WT: 142 LB (64.55 kg) BMI: 21.02 (Normal) GI/ Skin Integrity GI: WNL, Soft, Flat, Non- tender BM: 04/30 x1 I/O: 1360/Not Noted Skin: WNL, Intact Braulio: 20 Diet Order: Mechanical Soft, [place] Estimated Energy Needs: ( Geriatric, CBW) 1277-5432 kcals (25-30 kcals/ kg) 65-80g Pro (1.0-1.2 g/kg) 7075-0266 ml (25-30 ml/kg) Current Diet Order/ Nutrition Support Mechanical Soft, [place] Pertinent Medications Maalox (PRN), MOM (PRN) Pertinent Labs 04/25: A1c 5.5%, Na 133, Glucose 100, BUN/Cr 21/1.67, GFR 34, Tags 152, HDL 38, Hgb/ Hct 10.5/31.4 Nutritional Hx/Data Height 1.75 m Height (Calculated Centimeters) 175.3 Current Weight (lbs) 64.41 kg Weight (Calculated Kilograms) 64.4 Weight (Calculated Grams) 21092.1 [place] Body Weight 145 LB (65.91 kg) % [place] Body Weight 98 Body Mass Index (BMI) 20.9 Weight Status Approriate GI Symptoms Last BM 04/30 x1 Skin Integrity/Comment: Skin: WNL, Intact Braulio: 20 Current %PO Good (75-100%) Estimated Nutritional Goals BEE in Kcals: Using Current wt Calories/Kcals/Kg 25-30 Kcals Calculated 9079-4224 Protein: Using Current wt Protein g/k.0-1.2 Protein Calculated 65-80 Fluid: ml 0151-6719 ml (25-30 ml/kg) Nutritional Problem 1. Problem Problem Altered nutrition related labs Etiology r/t renal dysfunction Signs/Symptoms: aeb Hx ARF and labs (04/25): BUN/Cr 21/1.67, GFR 34. Malnutrition Related to Morbid Obesity Malnutrition related to morbid obesity No Intervention/Recommendation Comments Continue Mechanical Soft, [place] diet as tolerated. Expected Outcomes/Goals Expected Outcomes/Goals 1.PO intake to continue to meet >75% of estimated nutritional needs. 2.Monitor PO intake, wt, nutrition related labs, and skin integrity. 3.F/U as low risk in 7-10 days , 05/07-05/09.
--- NOTE | 2019-05-04 21:12 | Progress Notes ---
DATE: 05/04/2019 SUBJECTIVE: Case was discussed with staff of the patient, reviewed records. The patient continues to be loud, continues to have poor insight, unpredictable, impulsive, needing redirection. She is on a huge dosage of oral medication Depakote 500 mg twice a day, olanzapine 20 mg twice a day, BuSpar 20 mg 3 times a day, gabapentin 300 mg daily. I will be increasing the Neurontin dose to see if that may help with her being loud and agitated. No side effects with the medication, no sedation, no nausea, no extrapyramidal symptoms. We will continue the patient in group therapy, milieu therapy, and adjust medications as needed. JOB# [id number]
--- NOTE | 2019-05-05 11:15 | Internal Medicine Prog Note ---
Internal Medicine Subjective - Subjective Service Date: 05/05/19 Patient is:: awake, verbal, agitated, confused Patient Complaints of:: other (hx of Htn.) Per staff patient has:: no adverse event, no episodes of fall, tolerating meds Internal Medicine Objective - Physical Exam Vitals and I&O: Vital Signs Temp 97.4 F 05/05/19 06:21 Pulse 113 05/05/19 08:36 Resp 19 05/05/19 06:21 BP 105/66 05/05/19 08:36 Pulse Ox 98 05/05/19 06:21 Intake & Output 05/04/19 05/05/19 05/05/19 18:59 06:59 18:59 Intake Total 1300 120 Balance 1300 120 Intake: Oral 1300 120 Other: # Voids 3 1 # Bowel Movements 0 0 Stool Characteristics Formed Brown Active Medications: Current Medications Acetaminophen (Tylenol) 650 mg PO Q4H PRN PRN Reason: Pain (Mild 1-3) Stop: 06/24/19 23:00 Last Admin: 04/29/19 20:46 Dose: 650 mg Acetaminophen (Tylenol) 650 mg PO Q4H PRN PRN Reason: temp.>100.4 Stop: 06/25/19 01:20 Al Hydrox/Mg Hydrox/Simethicone (Maalox) 30 ml PO Q4HR PRN PRN Reason: GI DISTRESS Stop: 06/24/19 23:00 Buspirone HCl (Buspar) 20 mg PO TID [facility]; Protocol Stop: 07/01/19 13:59 Last Admin: 05/05/19 08:39 Dose: 20 mg Divalproex Sodium (Depakote Dr) 500 mg PO BID [facility]; Protocol Stop: 06/26/19 16:59 Last Admin: 05/05/19 08:38 Dose: 500 mg Gabapentin (Neurontin) 300 mg PO TID [facility] Stop: 07/03/19 13:59 Last Admin: 05/05/19 08:39 Dose: 300 mg Lisinopril (Zestril) 20 mg PO DAILY [facility] Stop: 06/25/19 08:59 Last Admin: 05/05/19 08:36 Dose: Not Given Magnesium Hydroxide (Milk Of Magnesia) 30 ml PO HS PRN PRN Reason: Constipation Mirtazapine (Remeron) 15 mg PO HS [facility]; Protocol Stop: 06/25/19 20:59 Last Admin: 05/04/19 20:43 Dose: 15 mg Naproxen (Naprosyn) 500 mg PO BIDWM [facility] Stop: 06/25/19 07:59 Last Admin: 05/05/19 08:39 Dose: 500 mg Olanzapine (Zyprexa) 20 mg PO BID [facility]; Protocol Stop: 06/25/19 08:59 Last Admin: 05/05/19 08:39 Dose: 20 mg General: alert HEENT: NC/AT, PERRLA Neck: Supple Lungs: CTAB Cardiovascular: RRR, Normal S1, Normal S2, without murmur Abdomen: soft, non-tender, non-distended, distended, positive bowel sound Extremities: clear Neurological: alert Internal Medicine Assmt/Plan - Assessment Assessment: ASSESSMENT: Acute renal failure, hypertension, anxiety, bipolar, anemia. - Plan Plan: PLAN: Fall precautions being initiated. Continue routine medications. We will continue to follow this patient. Nutritional Asmnt/Malnutr-PDOC - Dietary Evaluation Malnutrition Findings (Please click <Entered> for more info): Nutritional Asmnt/Malnutrition Start: 05/01/19 12: 37 Text: Status: Complete Freq: Protocol: Document 05/01/19 12:38 GALINA (Rec: 05/01/19 12:40 GALINA [id number]) Nutritional Asmnt/Malnutrition Patient General Information Nutritional Screening Low Risk Diagnosis Psychosis Pertinent Medical Hx/Surgical Hx Acute Renal Failure, UTI, Major Depressive disorder, HTN , Anxiety, Bipolar, Anemia. Subjective Information Pt is a 54-year-old female admitted on 04/25 d/t increased agitation and sexual inappropriateness toward medical staff. Pt is eating an estimated 88% of meals since admit date (x5 days) Per Meal/ Nutrition Activity Record. Dietary is currently providing an estimated 1940 kcals and 80 gm Pro, per Pt PO intake this is providing an estimated 1700 kcals and 70gm Pro to meet 100% kcal and 100% Pro needs. Visited pt in community room today, she gave me her food preferences and said she wanted a chocolate Ensure as a snack because another pt next to her was having one. Gave her an Ensure. Pt is loud and gets agitated easily, was yelling at another pt, telling him to be quiet when we were talking. Pt is eating well and meeting estimated nutritional needs. Pt has Altered nutrition related labs r/t renal dysfunction aeb Hx ARF and labs (04/25): BUN/Cr 21/1.67, GFR 34. Will continue to monitor renal related labs and make further recommendations should K, P, or Ca levels elevate, [place] already included in current Diet Rx. Anthropometrics HT: 59 WT: 142 LB (64.55 kg) BMI: 21.02 (Normal) GI/ Skin Integrity GI: WNL, Soft, Flat, Non- tender BM: 04/30 x1 I/O: 1360/Not Noted Skin: WNL, Intact Braulio: 20 Diet Order: Mechanical Soft, [place] Estimated Energy Needs: ( Geriatric, CBW) 1732-0298 kcals (25-30 kcals/ kg) 65-80g Pro (1.0-1.2 g/kg) 0485-3091 ml (25-30 ml/kg) Current Diet Order/ Nutrition Support Mechanical Soft, [place] Pertinent Medications Maalox (PRN), MOM (PRN) Pertinent Labs 04/25: A1c 5.5%, Na 133, Glucose 100, BUN/Cr 21/1.67, GFR 34, Tags 152, HDL 38, Hgb/ Hct 10.5/31.4 Nutritional Hx/Data Height 5 ft 9 in Height (Calculated Centimeters) 175.3 Current Weight (lbs) 142 lb Weight (Calculated Kilograms) 64.4 Weight (Calculated Grams) 01597.1 [place] Body Weight 145 LB (65.91 kg) % [place] Body Weight 98 Body Mass Index (BMI) 20.9 Weight Status Approriate GI Symptoms Last BM 04/30 x1 Skin Integrity/Comment: Skin: WNL, Intact Braulio: 20 Current %PO Good (75-100%) Estimated Nutritional Goals BEE in Kcals: Using Current wt Calories/Kcals/Kg 25-30 Kcals Calculated 1087-3568 Protein: Using Current wt Protein g/k.0-1.2 Protein Calculated 65-80 Fluid: ml 1788-2123 ml (25-30 ml/kg) Nutritional Problem 1. Problem Problem Altered nutrition related labs Etiology r/t renal dysfunction Signs/Symptoms: aeb Hx ARF and labs (04/25): BUN/Cr 21/1.67, GFR 34. Malnutrition Related to Morbid Obesity Malnutrition related to morbid obesity No Intervention/Recommendation Comments Continue Mechanical Soft, [place] diet as tolerated. Expected Outcomes/Goals Expected Outcomes/Goals 1.PO intake to continue to meet >75% of estimated nutritional needs. 2.Monitor PO intake, wt, nutrition related labs, and skin integrity. 3.F/U as low risk in 7-10 days , 05/07-05/09.
--- NOTE | 2019-05-05 11:37 | Progress Notes ---
DATE: 05/05/2019 Case was discussed with staff of the patient, reviewed records. The patient continues to have poor insight, unable to make safe plan for self-care. Continues to be loud, hard to redirect. The patient with history of renal failure, hypertension. No side effects of the medication. I did increase her BuSpar 20 mg 3 times a day and Depakote level was checked yesterday, results are pending. No side effects with the medication, no sedation, no nausea, no extrapyramidal symptoms. We will continue outpatient group therapy, milieu therapy, adjust medication as needed. JOB# [id number] LUCIA
--- NOTE | 2019-05-06 10:28 | Internal Medicine Prog Note ---
Internal Medicine Subjective - Subjective Service Date: 05/06/19 Patient seen and examined:: with staff, chart reviewed Patient is:: awake, verbal, agitated, confused Patient Complaints of:: other (hx of Htn.) Per staff patient has:: no adverse event, no episodes of fall, tolerating meds Internal Medicine Objective - Physical Exam Vitals and I&O: Vital Signs Temp 97.3 F 05/06/19 06:32 Pulse 69 05/06/19 08:22 Resp 20 05/06/19 07:35 BP 108/60 05/06/19 08:22 Pulse Ox 98 05/06/19 06:32 Intake & Output 05/05/19 05/06/19 05/06/19 18:59 06:59 18:59 Intake Total 1500 120 Balance 1500 120 Intake: Oral 1500 120 Other: # Voids 1 # Bowel Movements 0 Stool Characteristics Formed Formed Brown Brown Active Medications: Current Medications Acetaminophen (Tylenol) 650 mg PO Q4H PRN PRN Reason: Pain (Mild 1-3) Stop: 06/24/19 23:00 Last Admin: 05/05/19 21:45 Dose: 650 mg Acetaminophen (Tylenol) 650 mg PO Q4H PRN PRN Reason: temp.>100.4 Stop: 06/25/19 01:20 Al Hydrox/Mg Hydrox/Simethicone (Maalox) 30 ml PO Q4HR PRN PRN Reason: GI DISTRESS Stop: 06/24/19 23:00 Buspirone HCl (Buspar) 20 mg PO TID [facility]; Protocol Stop: 07/01/19 13:59 Last Admin: 05/06/19 08:21 Dose: 20 mg Divalproex Sodium (Depakote Dr) 500 mg PO BID [facility]; Protocol Stop: 06/26/19 16:59 Last Admin: 05/06/19 08:22 Dose: 500 mg Gabapentin (Neurontin) 300 mg PO TID [facility] Stop: 07/03/19 13:59 Last Admin: 05/06/19 08:20 Dose: 300 mg Lisinopril (Zestril) 20 mg PO DAILY [facility] Stop: 06/25/19 08:59 Last Admin: 05/06/19 08:22 Dose: 20 mg Magnesium Hydroxide (Milk Of Magnesia) 30 ml PO HS PRN PRN Reason: Constipation Mirtazapine (Remeron) 15 mg PO HS [facility]; Protocol Stop: 06/25/19 20:59 Last Admin: 05/05/19 20:26 Dose: 15 mg Naproxen (Naprosyn) 500 mg PO BIDWM [facility] Stop: 06/25/19 07:59 Last Admin: 05/06/19 08:05 Dose: 500 mg Olanzapine (Zyprexa) 20 mg PO BID [facility]; Protocol Stop: 06/25/19 08:59 Last Admin: 05/06/19 08:21 Dose: 20 mg Physical Exam: Patient needs close monitoring, patient continues to be very loud, impulsive and has poor insight. General: alert HEENT: NC/AT, PERRLA Neck: Supple Lungs: CTAB Cardiovascular: RRR, Normal S1, Normal S2, without murmur Abdomen: soft, non-tender, non-distended, distended, positive bowel sound Extremities: clear Neurological: alert Internal Medicine Assmt/Plan - Assessment Assessment: Bipolar disorder. Acute renal failure. Hypertension. Anxiety. Anemia. - Plan Plan: Continue present meds as directed. Monitor vitals and labs. Supportive care. Psych management as per Psych. Pain management. Monitor diet and nutritional support. Continue present care management. Nutritional Asmnt/Malnutr-PDOC - Dietary Evaluation Malnutrition Findings (Please click <Entered> for more info): Nutritional Asmnt/Malnutrition Start: 05/01/19 12: 37 Text: Status: Complete Freq: Protocol: Document 05/01/19 12:38 GALINA (Rec: 05/01/19 12:40 GALINA [id number]) Nutritional Asmnt/Malnutrition Patient General Information Nutritional Screening Low Risk Diagnosis Psychosis Pertinent Medical Hx/Surgical Hx Acute Renal Failure, UTI, Major Depressive disorder, HTN , Anxiety, Bipolar, Anemia. Subjective Information Pt is a 54-year-old female admitted on 04/25 d/t increased agitation and sexual inappropriateness toward medical staff. Pt is eating an estimated 88% of meals since admit date (x5 days) Per Meal/ Nutrition Activity Record. Dietary is currently providing an estimated 1940 kcals and 80 gm Pro, per Pt PO intake this is providing an estimated 1700 kcals and 70gm Pro to meet 100% kcal and 100% Pro needs. Visited pt in community room today, she gave me her food preferences and said she wanted a chocolate Ensure as a snack because another pt next to her was having one. Gave her an Ensure. Pt is loud and gets agitated easily, was yelling at another pt, telling him to be quiet when we were talking. Pt is eating well and meeting estimated nutritional needs. Pt has Altered nutrition related labs r/t renal dysfunction aeb Hx ARF and labs (04/25): BUN/Cr 21/1.67, GFR 34. Will continue to monitor renal related labs and make further recommendations should K, P, or Ca levels elevate, [place] already included in current Diet Rx. Anthropometrics HT: 59 WT: 142 LB (64.55 kg) BMI: 21.02 (Normal) GI/ Skin Integrity GI: WNL, Soft, Flat, Non- tender BM: 04/30 x1 I/O: 1360/Not Noted Skin: WNL, Intact Braulio: 20 Diet Order: Mechanical Soft, [place] Estimated Energy Needs: ( Geriatric, CBW) 2916-3756 kcals (25-30 kcals/ kg) 65-80g Pro (1.0-1.2 g/kg) 7380-9782 ml (25-30 ml/kg) Current Diet Order/ Nutrition Support Mechanical Soft, [place] Pertinent Medications Maalox (PRN), MOM (PRN) Pertinent Labs 04/25: A1c 5.5%, Na 133, Glucose 100, BUN/Cr 21/1.67, GFR 34, Tags 152, HDL 38, Hgb/ Hct 10.5/31.4 Nutritional Hx/Data Height 1.75 m Height (Calculated Centimeters) 175.3 Current Weight (lbs) 64.41 kg Weight (Calculated Kilograms) 64.4 Weight (Calculated Grams) 28764.1 [place] Body Weight 145 LB (65.91 kg) % [place] Body Weight 98 Body Mass Index (BMI) 20.9 Weight Status Approriate GI Symptoms Last BM 04/30 x1 Skin Integrity/Comment: Skin: WNL, Intact Braulio: 20 Current %PO Good (75-100%) Estimated Nutritional Goals BEE in Kcals: Using Current wt Calories/Kcals/Kg 25-30 Kcals Calculated 4648-6844 Protein: Using Current wt Protein g/k.0-1.2 Protein Calculated 65-80 Fluid: ml 1883-7154 ml (25-30 ml/kg) Nutritional Problem 1. Problem Problem Altered nutrition related labs Etiology r/t renal dysfunction Signs/Symptoms: aeb Hx ARF and labs (04/25): BUN/Cr 21/1.67, GFR 34. Malnutrition Related to Morbid Obesity Malnutrition related to morbid obesity No Intervention/Recommendation Comments Continue Mechanical Soft, [place] diet as tolerated. Expected Outcomes/Goals Expected Outcomes/Goals 1.PO intake to continue to meet >75% of estimated nutritional needs. 2.Monitor PO intake, wt, nutrition related labs, and skin integrity. 3.F/U as low risk in 7-10 days , 05/07-05/09.
--- NOTE | 2019-05-06 13:52 | Internal Medicine Prog Note ---
Internal Medicine Subjective - Subjective Service Date: 05/06/19 Patient is:: awake, verbal, agitated, confused Patient Complaints of:: other (hx of Htn.) Per staff patient has:: no adverse event, no episodes of fall, tolerating meds Internal Medicine Objective - Physical Exam Vitals and I&O: Vital Signs Temp 97.3 F 05/06/19 06:32 Pulse 69 05/06/19 08:22 Resp 20 05/06/19 07:35 BP 108/60 05/06/19 08:22 Pulse Ox 98 05/06/19 06:32 Intake & Output 05/05/19 05/06/19 05/06/19 18:59 06:59 18:59 Intake Total 1500 120 Balance 1500 120 Intake: Oral 1500 120 Other: # Voids 1 # Bowel Movements 0 Stool Characteristics Formed Formed Brown Brown Active Medications: Current Medications Acetaminophen (Tylenol) 650 mg PO Q4H PRN PRN Reason: Pain (Mild 1-3) Stop: 06/24/19 23:00 Last Admin: 05/05/19 21:45 Dose: 650 mg Acetaminophen (Tylenol) 650 mg PO Q4H PRN PRN Reason: temp.>100.4 Stop: 06/25/19 01:20 Al Hydrox/Mg Hydrox/Simethicone (Maalox) 30 ml PO Q4HR PRN PRN Reason: GI DISTRESS Stop: 06/24/19 23:00 Buspirone HCl (Buspar) 20 mg PO TID [facility]; Protocol Stop: 07/01/19 13:59 Last Admin: 05/06/19 13:27 Dose: 20 mg Divalproex Sodium (Depakote Dr) 500 mg PO BID [facility]; Protocol Stop: 06/26/19 16:59 Last Admin: 05/06/19 08:22 Dose: 500 mg Gabapentin (Neurontin) 300 mg PO TID [facility] Stop: 07/03/19 13:59 Last Admin: 05/06/19 13:27 Dose: 300 mg Lisinopril (Zestril) 20 mg PO DAILY [facility] Stop: 06/25/19 08:59 Last Admin: 05/06/19 08:22 Dose: 20 mg Magnesium Hydroxide (Milk Of Magnesia) 30 ml PO HS PRN PRN Reason: Constipation Mirtazapine (Remeron) 15 mg PO HS [facility]; Protocol Stop: 06/25/19 20:59 Last Admin: 05/05/19 20:26 Dose: 15 mg Naproxen (Naprosyn) 500 mg PO BIDWM [facility] Stop: 06/25/19 07:59 Last Admin: 05/06/19 08:05 Dose: 500 mg Olanzapine (Zyprexa) 20 mg PO BID [facility]; Protocol Stop: 06/25/19 08:59 Last Admin: 05/06/19 08:21 Dose: 20 mg General: alert HEENT: NC/AT, PERRLA Neck: Supple Lungs: CTAB Cardiovascular: RRR, Normal S1, Normal S2, without murmur Abdomen: soft, non-tender, non-distended, distended, positive bowel sound Extremities: clear Neurological: alert Internal Medicine Assmt/Plan - Assessment Assessment: ASSESSMENT: Acute renal failure, hypertension, anxiety, bipolar, anemia. - Plan Plan: PLAN: Fall precautions being initiated. Continue routine medications. We will continue to follow this patient. Nutritional Asmnt/Malnutr-PDOC - Dietary Evaluation Malnutrition Findings (Please click <Entered> for more info): Nutritional Asmnt/Malnutrition Start: 05/01/19 12: 37 Text: Status: Complete Freq: Protocol: Document 05/01/19 12:38 GALINA (Rec: 05/01/19 12:40 GALINA [id number]) Nutritional Asmnt/Malnutrition Patient General Information Nutritional Screening Low Risk Diagnosis Psychosis Pertinent Medical Hx/Surgical Hx Acute Renal Failure, UTI, Major Depressive disorder, HTN , Anxiety, Bipolar, Anemia. Subjective Information Pt is a 54-year-old female admitted on 04/25 d/t increased agitation and sexual inappropriateness toward medical staff. Pt is eating an estimated 88% of meals since admit date (x5 days) Per Meal/ Nutrition Activity Record. Dietary is currently providing an estimated 1940 kcals and 80 gm Pro, per Pt PO intake this is providing an estimated 1700 kcals and 70gm Pro to meet 100% kcal and 100% Pro needs. Visited pt in community room today, she gave me her food preferences and said she wanted a chocolate Ensure as a snack because another pt next to her was having one. Gave her an Ensure. Pt is loud and gets agitated easily, was yelling at another pt, telling him to be quiet when we were talking. Pt is eating well and meeting estimated nutritional needs. Pt has Altered nutrition related labs r/t renal dysfunction aeb Hx ARF and labs (04/25): BUN/Cr 21/1.67, GFR 34. Will continue to monitor renal related labs and make further recommendations should K, P, or Ca levels elevate, [place] already included in current Diet Rx. Anthropometrics HT: 59 WT: 142 LB (64.55 kg) BMI: 21.02 (Normal) GI/ Skin Integrity GI: WNL, Soft, Flat, Non- tender BM: 04/30 x1 I/O: 1360/Not Noted Skin: WNL, Intact Braulio: 20 Diet Order: Mechanical Soft, [place] Estimated Energy Needs: ( Geriatric, CBW) 0173-3856 kcals (25-30 kcals/ kg) 65-80g Pro (1.0-1.2 g/kg) 4132-4440 ml (25-30 ml/kg) Current Diet Order/ Nutrition Support Mechanical Soft, [place] Pertinent Medications Maalox (PRN), MOM (PRN) Pertinent Labs 04/25: A1c 5.5%, Na 133, Glucose 100, BUN/Cr 21/1.67, GFR 34, Tags 152, HDL 38, Hgb/ Hct 10.5/31.4 Nutritional Hx/Data Height 5 ft 9 in Height (Calculated Centimeters) 175.3 Current Weight (lbs) 142 lb Weight (Calculated Kilograms) 64.4 Weight (Calculated Grams) 46240.1 [place] Body Weight 145 LB (65.91 kg) % [place] Body Weight 98 Body Mass Index (BMI) 20.9 Weight Status Approriate GI Symptoms Last BM 04/30 x1 Skin Integrity/Comment: Skin: WNL, Intact Braulio: 20 Current %PO Good (75-100%) Estimated Nutritional Goals BEE in Kcals: Using Current wt Calories/Kcals/Kg 25-30 Kcals Calculated 3793-4534 Protein: Using Current wt Protein g/k.0-1.2 Protein Calculated 65-80 Fluid: ml 2112-1873 ml (25-30 ml/kg) Nutritional Problem 1. Problem Problem Altered nutrition related labs Etiology r/t renal dysfunction Signs/Symptoms: aeb Hx ARF and labs (04/25): BUN/Cr 21/1.67, GFR 34. Malnutrition Related to Morbid Obesity Malnutrition related to morbid obesity No Intervention/Recommendation Comments Continue Mechanical Soft, [place] diet as tolerated. Expected Outcomes/Goals Expected Outcomes/Goals 1.PO intake to continue to meet >75% of estimated nutritional needs. 2.Monitor PO intake, wt, nutrition related labs, and skin integrity. 3.F/U as low risk in 7-10 days , 05/07-05/09.
--- NOTE | 2019-05-06 22:32 | Progress Notes ---
DATE: 05/06/2019 Case was discussed with staff of the patient, reviewed records. Covering for Dr. Ibarra. The patient continues to be loud, unpredictable, and impulsive. Her Depakote level was low, it was repeated , so we are changing her to liquid Depakote before adjusting her medication. No side effects with the medication, no sedation, no nausea, no extrapyramidal symptoms. We will continue outpatient group therapy, milieu therapy, adjust medication as needed. Also, I will be adding a small dose of Risperdal for her at 0.5 mg twice a day. Discussed side effects. We will continue outpatient group therapy, milieu therapy, adjust medication as needed. Also we will be changing her Depakote to liquid Depakene and we will continue outpatient group therapy, milieu therapy, adjust medication as needed. JOB# [id number] MTDJoe
--- NOTE | 2019-05-07 08:40 | Progress Notes ---
DATE: 05/07/2019 SUBJECTIVE: The patient was seen in the hallway. The patient appears to be guarded, impulsive and unpredictable, labile mood. Otherwise, the patient appears to be in no acute distress. OBJECTIVE: VITAL SIGNS: Temperature 97.5, heart rate of 66, blood pressure 100/62, respirations 18, 94% on room air. HEENT: Head is atraumatic and normocephalic. Eyes: Bilateral conjunctivae are clear. Bilateral pupils equal, round and reactive. NECK: Supple. No JVD. CARDIOVASCULAR: S1 and S2, without murmur. PULMONARY: Clear to auscultation. GASTROINTESTINAL: Soft and nontender without guarding. Positive bowel sounds. MUSCULOSKELETAL: No clubbing. No cyanosis noted. ASSESSMENT: 1. Bipolar disorder. 2. Hypertension. 3. Anemia. PLAN: We will continue to keep the patient to inpatient Psychiatric Unit. We will follow up with a psychiatrist to monitor the patient's condition and behavior. Treatment plans discussed with the patient's nurse. Treatment plan discussed with Dr. Oconnell. We will put the patient on fall precautions. JOB# [id number]
--- NOTE | 2019-05-08 06:24 | Psych Progress Note ---
Psych Progress Note - Intro Date of Progress Note: 05/07/19 - Assessment Assessment: Patient interviewed, case discussed with staff, chart and records were reviewed. Patient is uncooperative with interview. She is disorganized and not engaged with the interview. Per staff, patient has been easily agitated. No side effects noted to medications. Poor self care, easily angered, not following redirection. - Vitals, I&O Vitals: Vital Signs - 24 hr 05/07/19 05/07/19 05/07/19 08:00 08:44 14:39 Temp 97.9 F HR 56 73 RR 20 18 BP 100/62 97/59 O2 Sat % 93 05/07/19 05/07/19 20:00 21:07 Temp 98.3 F HR 79 RR 20 20 BP 99/56 O2 Sat % 92 - Objective Psych General Appearance: Report: Disheveled Psych Behavior: Report: Uncooperative Psych Speech: Report: Mumbled Psych Mood: Report: Labile Psych Affect: Report: Labile Psych Thought Process: Report: Loose Associations Psych Cognition: Report: Confused Psych Insight: Report: Impaired Psych Judgement: Report: Impaired - Plan Plan: continue current treatment plan, consider valproic acid level. will continue to observe for side effects and behaviors. - Review of Relevant Data Review of Relevant Data: I have reviewed the following items and time vinod (where applicable) has been applied. - Medications Current Medications: Current Medications Acetaminophen (Tylenol) 650 mg PO Q4H PRN PRN Reason: Pain (Mild 1-3) Stop: 06/24/19 23:00 Last Admin: 05/07/19 20:40 Dose: 650 mg Acetaminophen (Tylenol) 650 mg PO Q4H PRN PRN Reason: temp.>100.4 Stop: 06/25/19 01:20 Al Hydrox/Mg Hydrox/Simethicone (Maalox) 30 ml PO Q4HR PRN PRN Reason: GI DISTRESS Stop: 06/24/19 23:00 Buspirone HCl (Buspar) 20 mg PO TID [facility]; Protocol Stop: 07/01/19 13:59 Last Admin: 05/07/19 20:40 Dose: 20 mg Divalproex Sodium (Depakote Dr) 500 mg PO BID [facility]; Protocol Stop: 06/26/19 16:59 Last Admin: 02/29/20 16:47 Dose: 500 mg Gabapentin (Neurontin) 300 mg PO TID [facility] Stop: 07/03/19 13:59 Last Admin: 05/07/19 20:40 Dose: 300 mg Lisinopril (Zestril) 20 mg PO DAILY [facility] Stop: 06/25/19 08:59 Last Admin: 05/07/19 08:44 Dose: Not Given Lorazepam (Ativan) 1 mg PO Q6HR PRN; Protocol PRN Reason: Agitation Stop: 07/05/19 15:51 Last Admin: 05/07/19 16:28 Dose: 1 mg Magnesium Hydroxide (Milk Of Magnesia) 30 ml PO HS PRN PRN Reason: Constipation Mirtazapine (Remeron) 15 mg PO HS [facility]; Protocol Stop: 06/25/19 20:59 Last Admin: 05/07/19 20:40 Dose: 15 mg Naproxen (Naprosyn) 500 mg PO BIDWM [facility] Stop: 06/25/19 07:59 Last Admin: 05/07/19 13:59 Dose: 500 mg Olanzapine (Zyprexa) 20 mg PO BID [facility]; Protocol Stop: 06/25/19 08:59 Last Admin: 05/07/19 16:47 Dose: 20 mg
--- NOTE | 2019-05-08 20:34 | Internal Medicine Prog Note ---
Internal Medicine Subjective - Subjective Service Date: 05/08/19 Patient is:: awake, verbal, agitated, confused Patient Complaints of:: other (hx of Htn.) Per staff patient has:: no adverse event, no episodes of fall, tolerating meds Internal Medicine Objective - Physical Exam Vitals and I&O: Vital Signs Temp 97.6 F 05/08/19 20:00 Pulse 79 05/08/19 20:00 Resp 18 05/08/19 20:00 BP 107/56 05/08/19 20:00 Pulse Ox 96 05/08/19 20:00 Intake & Output 05/08/19 05/08/19 05/09/19 06:59 18:59 06:59 Intake Total 240 1200 240 Balance 240 1200 240 Intake: Oral 240 1200 240 Other: # Voids 2 4 1 # Bowel Movements 1 Active Medications: Current Medications Acetaminophen (Tylenol) 650 mg PO Q4H PRN PRN Reason: Pain (Mild 1-3) Stop: 06/24/19 23:00 Last Admin: 05/07/19 20:40 Dose: 650 mg Acetaminophen (Tylenol) 650 mg PO Q4H PRN PRN Reason: temp.>100.4 Stop: 06/25/19 01:20 Al Hydrox/Mg Hydrox/Simethicone (Maalox) 30 ml PO Q4HR PRN PRN Reason: GI DISTRESS Stop: 06/24/19 23:00 Buspirone HCl (Buspar) 20 mg PO TID [facility]; Protocol Stop: 07/01/19 13:59 Last Admin: 05/08/19 13:14 Dose: 20 mg Divalproex Sodium (Depakote Dr) 500 mg PO BID [facility]; Protocol Stop: 06/26/19 16:59 Last Admin: 05/08/19 17:02 Dose: 500 mg Gabapentin (Neurontin) 300 mg PO TID [facility] Stop: 07/03/19 13:59 Last Admin: 05/08/19 13:14 Dose: Not Given Lisinopril (Zestril) 20 mg PO DAILY [facility] Stop: 06/25/19 08:59 Last Admin: 05/08/19 08:26 Dose: 20 mg Lorazepam (Ativan) 1 mg PO Q6HR PRN; Protocol PRN Reason: Agitation Stop: 07/05/19 15:51 Last Admin: 05/08/19 15:29 Dose: 1 mg Magnesium Hydroxide (Milk Of Magnesia) 30 ml PO HS PRN PRN Reason: Constipation Mirtazapine (Remeron) 15 mg PO HS [facility]; Protocol Stop: 06/25/19 20:59 Last Admin: 05/07/19 20:40 Dose: 15 mg Naproxen (Naprosyn) 500 mg PO BIDWM [facility] Stop: 06/25/19 07:59 Last Admin: 05/08/19 17:02 Dose: 500 mg Olanzapine (Zyprexa) 20 mg PO BID [facility]; Protocol Stop: 06/25/19 08:59 Last Admin: 05/08/19 17:02 Dose: 20 mg General: alert, NAD HEENT: NC/AT, PERRLA Neck: Supple Lungs: CTAB Cardiovascular: RRR, Normal S1, Normal S2 Abdomen: soft, non-tender, non-distended, positive bowel sound Extremities: clear Neurological: alert Internal Medicine Assmt/Plan - Assessment Assessment: ARF HTN Anxiety Bipolar Anemia - Plan Plan: Continue current managements Monitor VS Monitor Labs Psych management per Psych Pain managment as needed. Monitor nutritional needs. Fall Precaution Continue collaboration with interdisciplinary team. Nutritional Asmnt/Malnutr-PDOC - Dietary Evaluation Malnutrition Findings (Please click <Entered> for more info): Nutritional Asmnt/Malnutrition Start: 05/01/19 12: 37 Text: Status: Complete Freq: Protocol: Document 05/01/19 12:38 GAILNA (Rec: 05/01/19 12:40 GALINA [id number]) Nutritional Asmnt/Malnutrition Patient General Information Nutritional Screening Low Risk Diagnosis Psychosis Pertinent Medical Hx/Surgical Hx Acute Renal Failure, UTI, Major Depressive disorder, HTN , Anxiety, Bipolar, Anemia. Subjective Information Pt is a 54-year-old female admitted on 04/25 d/t increased agitation and sexual inappropriateness toward medical staff. Pt is eating an estimated 88% of meals since admit date (x5 days) Per Meal/ Nutrition Activity Record. Dietary is currently providing an estimated 1940 kcals and 80 gm Pro, per Pt PO intake this is providing an estimated 1700 kcals and 70gm Pro to meet 100% kcal and 100% Pro needs. Visited pt in community room today, she gave me her food preferences and said she wanted a chocolate Ensure as a snack because another pt next to her was having one. Gave her an Ensure. Pt is loud and gets agitated easily, was yelling at another pt, telling him to be quiet when we were talking. Pt is eating well and meeting estimated nutritional needs. Pt has Altered nutrition related labs r/t renal dysfunction aeb Hx ARF and labs (04/25): BUN/Cr 21/1.67, GFR 34. Will continue to monitor renal related labs and make further recommendations should K, P, or Ca levels elevate, [place] already included in current Diet Rx. Anthropometrics HT: 59 WT: 142 LB (64.55 kg) BMI: 21.02 (Normal) GI/ Skin Integrity GI: WNL, Soft, Flat, Non- tender BM: 04/30 x1 I/O: 1360/Not Noted Skin: WNL, Intact Braulio: 20 Diet Order: Mechanical Soft, [place] Estimated Energy Needs: ( Geriatric, CBW) 5495-9550 kcals (25-30 kcals/ kg) 65-80g Pro (1.0-1.2 g/kg) 7853-2783 ml (25-30 ml/kg) Current Diet Order/ Nutrition Support Mechanical Soft, [place] Pertinent Medications Maalox (PRN), MOM (PRN) Pertinent Labs 04/25: A1c 5.5%, Na 133, Glucose 100, BUN/Cr 21/1.67, GFR 34, Tags 152, HDL 38, Hgb/ Hct 10.5/31.4 Nutritional Hx/Data Height 5 ft 9 in Height (Calculated Centimeters) 175.3 Current Weight (lbs) 142 lb Weight (Calculated Kilograms) 64.4 Weight (Calculated Grams) 19386.1 [place] Body Weight 145 LB (65.91 kg) % [place] Body Weight 98 Body Mass Index (BMI) 20.9 Weight Status Approriate GI Symptoms Last BM 04/30 x1 Skin Integrity/Comment: Skin: WNL, Intact Braulio: 20 Current %PO Good (75-100%) Estimated Nutritional Goals BEE in Kcals: Using Current wt Calories/Kcals/Kg 25-30 Kcals Calculated 5908-6683 Protein: Using Current wt Protein g/k.0-1.2 Protein Calculated 65-80 Fluid: ml 9319-1028 ml (25-30 ml/kg) Nutritional Problem 1. Problem Problem Altered nutrition related labs Etiology r/t renal dysfunction Signs/Symptoms: aeb Hx ARF and labs (04/25): BUN/Cr 21/1.67, GFR 34. Malnutrition Related to Morbid Obesity Malnutrition related to morbid obesity No Intervention/Recommendation Comments Continue Mechanical Soft, [place] diet as tolerated. Expected Outcomes/Goals Expected Outcomes/Goals 1.PO intake to continue to meet >75% of estimated nutritional needs. 2.Monitor PO intake, wt, nutrition related labs, and skin integrity. 3.F/U as low risk in 7-10 days , 05/07-05/09.
--- NOTE | 2019-05-09 06:39 | Psych Progress Note ---
Psych Progress Note - Intro Date of Progress Note: 05/08/19 - Assessment Assessment: Patient interviewed, case discussed with staff, chart and records were reviewed. Patient is uncooperative with interview. She is disorganized and not engaged with the interview. Per staff, patient has been easily agitated. No side effects noted to medications. Poor self care, easily angered, not following redirection. She follows this provider throughout unit and is disruptive and provider needs staff assistance due to the severity of her intrusivness. - Vitals, I&O Vitals: Vital Signs - 24 hr 05/08/19 05/08/19 05/08/19 08:26 14:46 20:00 Temp 97.9 F 97.6 F HR 104 95 79 RR 18 18 BP 113/53 102/61 107/56 O2 Sat % 94 96 05/09/19 06:36 Temp 98.8 F HR 72 RR 19 BP 110/56 O2 Sat % 99 - Objective Psych General Appearance: Report: Disheveled Psych Behavior: Report: Uncooperative Psych Speech: Report: Mumbled Psych Mood: Report: Labile Psych Affect: Report: Labile Psych Thought Process: Report: Loose Associations Psych Cognition: Report: Confused Psych Insight: Report: Impaired Psych Judgement: Report: Impaired - Plan Plan: continue current treatment plan, consider valproic acid level. will continue to observe for side effects and behaviors. - Review of Relevant Data Review of Relevant Data: I have reviewed the following items and time vinod (where applicable) has been applied. - Medications Current Medications: Current Medications Acetaminophen (Tylenol) 650 mg PO Q4H PRN PRN Reason: Pain (Mild 1-3) Stop: 06/24/19 23:00 Last Admin: 05/07/19 20:40 Dose: 650 mg Acetaminophen (Tylenol) 650 mg PO Q4H PRN PRN Reason: temp.>100.4 Stop: 06/25/19 01:20 Al Hydrox/Mg Hydrox/Simethicone (Maalox) 30 ml PO Q4HR PRN PRN Reason: GI DISTRESS Stop: 06/24/19 23:00 Buspirone HCl (Buspar) 20 mg PO TID [facility]; Protocol Stop: 07/01/19 13:59 Last Admin: 05/08/19 21:02 Dose: 20 mg Divalproex Sodium (Depakote Dr) 500 mg PO BID [facility]; Protocol Stop: 06/26/19 16:59 Last Admin: 05/08/19 17:02 Dose: 500 mg Gabapentin (Neurontin) 300 mg PO TID [facility] Stop: 07/03/19 13:59 Last Admin: 05/08/19 21:03 Dose: 300 mg Lisinopril (Zestril) 20 mg PO DAILY [facility] Stop: 06/25/19 08:59 Last Admin: 05/08/19 08:26 Dose: 20 mg Lorazepam (Ativan) 1 mg PO Q6HR PRN; Protocol PRN Reason: Agitation Stop: 07/05/19 15:51 Last Admin: 05/08/19 22:13 Dose: 1 mg Magnesium Hydroxide (Milk Of Magnesia) 30 ml PO HS PRN PRN Reason: Constipation Mirtazapine (Remeron) 15 mg PO HS [facility]; Protocol Stop: 06/25/19 20:59 Last Admin: 05/08/19 21:02 Dose: 15 mg Naproxen (Naprosyn) 500 mg PO BIDWM [facility] Stop: 06/25/19 07:59 Last Admin: 05/08/19 17:02 Dose: 500 mg Olanzapine (Zyprexa) 20 mg PO BID [facility]; Protocol Stop: 06/25/19 08:59 Last Admin: 05/08/19 17:02 Dose: 20 mg
--- NOTE | 2019-05-09 08:57 | Internal Medicine Prog Note ---
Internal Medicine Subjective - Subjective Service Date: 05/09/19 Patient seen and examined:: with staff Patient is:: awake, verbal, agitated, confused Patient Complaints of:: other (hx of Htn.) Per staff patient has:: no adverse event, no episodes of fall, tolerating meds Internal Medicine Objective - Physical Exam Vitals and I&O: Vital Signs Temp 98.8 F 05/09/19 06:36 Pulse 72 05/09/19 06:36 Resp 19 05/09/19 06:36 BP 110/56 05/09/19 06:36 Pulse Ox 99 05/09/19 06:36 Intake & Output 05/08/19 05/09/19 05/09/19 18:59 06:59 18:59 Intake Total 1200 360 Balance 1200 360 Intake: Oral 1200 360 Other: # Voids 4 1 # Bowel Movements 1 0 Active Medications: Current Medications Acetaminophen (Tylenol) 650 mg PO Q4H PRN PRN Reason: Pain (Mild 1-3) Stop: 06/24/19 23:00 Last Admin: 05/07/19 20:40 Dose: 650 mg Acetaminophen (Tylenol) 650 mg PO Q4H PRN PRN Reason: temp.>100.4 Stop: 06/25/19 01:20 Al Hydrox/Mg Hydrox/Simethicone (Maalox) 30 ml PO Q4HR PRN PRN Reason: GI DISTRESS Stop: 06/24/19 23:00 Buspirone HCl (Buspar) 20 mg PO TID [facility]; Protocol Stop: 07/01/19 13:59 Last Admin: 05/09/19 08:50 Dose: 20 mg Divalproex Sodium (Depakote Dr) 500 mg PO BID [facility]; Protocol Stop: 06/26/19 16:59 Last Admin: 05/09/19 08:51 Dose: 500 mg Gabapentin (Neurontin) 300 mg PO TID [facility] Stop: 07/03/19 13:59 Last Admin: 05/09/19 08:49 Dose: 300 mg Lisinopril (Zestril) 20 mg PO DAILY [facility] Stop: 06/25/19 08:59 Last Admin: 05/09/19 08:51 Dose: Not Given Lorazepam (Ativan) 1 mg PO Q6HR PRN; Protocol PRN Reason: Agitation Stop: 07/05/19 15:51 Last Admin: 05/09/19 08:52 Dose: 1 mg Magnesium Hydroxide (Milk Of Magnesia) 30 ml PO HS PRN PRN Reason: Constipation Mirtazapine (Remeron) 15 mg PO HS [facility]; Protocol Stop: 06/25/19 20:59 Last Admin: 05/08/19 21:02 Dose: 15 mg Naproxen (Naprosyn) 500 mg PO BIDWM [facility] Stop: 06/25/19 07:59 Last Admin: 05/09/19 08:00 Dose: 500 mg Olanzapine (Zyprexa) 20 mg PO BID [facility]; Protocol Stop: 06/25/19 08:59 Last Admin: 05/09/19 08:52 Dose: 20 mg Physical Exam: Patient needs close monitoring, patient is still anxious and easily agitated. General: alert, NAD HEENT: NC/AT, PERRLA Neck: Supple Lungs: CTAB Cardiovascular: RRR, Normal S1, Normal S2 Abdomen: soft, non-tender, non-distended, positive bowel sound Extremities: clear Neurological: alert Internal Medicine Assmt/Plan - Assessment Assessment: Bipolar disorder. Acute renal failure. Hypertension. Anxiety. Anemia. - Plan Plan: Continue present meds as directed. Monitor vitals and labs. Supportive care. Psych management as per Psych. Pain management. Monitor diet and nutritional support. Continue present care management. Nutritional Asmnt/Malnutr-PDOC - Dietary Evaluation Malnutrition Findings (Please click <Entered> for more info): Nutritional Asmnt/Malnutrition Start: 05/01/19 12: 37 Text: Status: Complete Freq: Protocol: Document 05/01/19 12:38 GALINA (Rec: 05/01/19 12:40 GALINA [id number]) Nutritional Asmnt/Malnutrition Patient General Information Nutritional Screening Low Risk Diagnosis Psychosis Pertinent Medical Hx/Surgical Hx Acute Renal Failure, UTI, Major Depressive disorder, HTN , Anxiety, Bipolar, Anemia. Subjective Information Pt is a 54-year-old female admitted on 04/25 d/t increased agitation and sexual inappropriateness toward medical staff. Pt is eating an estimated 88% of meals since admit date (x5 days) Per Meal/ Nutrition Activity Record. Dietary is currently providing an estimated 1940 kcals and 80 gm Pro, per Pt PO intake this is providing an estimated 1700 kcals and 70gm Pro to meet 100% kcal and 100% Pro needs. Visited pt in community room today, she gave me her food preferences and said she wanted a chocolate Ensure as a snack because another pt next to her was having one. Gave her an Ensure. Pt is loud and gets agitated easily, was yelling at another pt, telling him to be quiet when we were talking. Pt is eating well and meeting estimated nutritional needs. Pt has Altered nutrition related labs r/t renal dysfunction aeb Hx ARF and labs (04/25): BUN/Cr 21/1.67, GFR 34. Will continue to monitor renal related labs and make further recommendations should K, P, or Ca levels elevate, [place] already included in current Diet Rx. Anthropometrics HT: 59 WT: 142 LB (64.55 kg) BMI: 21.02 (Normal) GI/ Skin Integrity GI: WNL, Soft, Flat, Non- tender BM: 04/30 x1 I/O: 1360/Not Noted Skin: WNL, Intact Braulio: 20 Diet Order: Mechanical Soft, [place] Estimated Energy Needs: ( Geriatric, CBW) 4414-4485 kcals (25-30 kcals/ kg) 65-80g Pro (1.0-1.2 g/kg) 0200-6290 ml (25-30 ml/kg) Current Diet Order/ Nutrition Support Mechanical Soft, [place] Pertinent Medications Maalox (PRN), MOM (PRN) Pertinent Labs 04/25: A1c 5.5%, Na 133, Glucose 100, BUN/Cr 21/1.67, GFR 34, Tags 152, HDL 38, Hgb/ Hct 10.5/31.4 Nutritional Hx/Data Height 1.75 m Height (Calculated Centimeters) 175.3 Current Weight (lbs) 64.41 kg Weight (Calculated Kilograms) 64.4 Weight (Calculated Grams) 03387.1 [place] Body Weight 145 LB (65.91 kg) % [place] Body Weight 98 Body Mass Index (BMI) 20.9 Weight Status Approriate GI Symptoms Last BM 04/30 x1 Skin Integrity/Comment: Skin: WNL, Intact Braulio: 20 Current %PO Good (75-100%) Estimated Nutritional Goals BEE in Kcals: Using Current wt Calories/Kcals/Kg 25-30 Kcals Calculated 4671-1809 Protein: Using Current wt Protein g/k.0-1.2 Protein Calculated 65-80 Fluid: ml 5213-9923 ml (25-30 ml/kg) Nutritional Problem 1. Problem Problem Altered nutrition related labs Etiology r/t renal dysfunction Signs/Symptoms: aeb Hx ARF and labs (04/25): BUN/Cr 21/1.67, GFR 34. Malnutrition Related to Morbid Obesity Malnutrition related to morbid obesity No Intervention/Recommendation Comments Continue Mechanical Soft, [place] diet as tolerated. Expected Outcomes/Goals Expected Outcomes/Goals 1.PO intake to continue to meet >75% of estimated nutritional needs. 2.Monitor PO intake, wt, nutrition related labs, and skin integrity. 3.F/U as low risk in 7-10 days , 05/07-05/09.
--- NOTE | 2019-05-10 00:45 | Progress Notes ---
DATE: 05/09/2019 SUBJECTIVE: A 54-year-old female, currently in the hospital, disorganized, not making much sense, agitated, intrusive, disorganized, very hard to understand, really had thought processes, loud, ruminative, restless, ongoing psychotic symptoms, concerns really for ability to function at a lower level of care given the extent and severity of her current psychotic state. The patient has a conservator and apparently she was staying at [facility]. PLAN: We will continue to monitor. Medications reviewed. Labs were reviewed. Time was spent discussing with the nursing staff and reviewing nursing notes speaking with the patient. JOB# [id number]
--- NOTE | 2019-05-10 13:50 | Internal Medicine Prog Note ---
Internal Medicine Subjective - Subjective Service Date: 05/10/19 Patient seen and examined:: with staff Patient is:: awake, verbal, agitated, confused Patient Complaints of:: other (hx of Htn.) Per staff patient has:: no adverse event, no episodes of fall, tolerating meds Internal Medicine Objective - Physical Exam Vitals and I&O: Vital Signs Temp 0 F 05/10/19 06:51 Pulse 70 05/10/19 08:34 Resp 17 05/10/19 08:00 BP 98/59 05/10/19 08:34 Pulse Ox 98 05/09/19 20:37 Intake & Output 05/09/19 05/10/19 05/10/19 18:59 06:59 18:59 Intake Total 1200 240 Balance 1200 240 Intake: Oral 1200 240 Other: # Voids 4 3 # Bowel Movements 2 0 Active Medications: Current Medications Acetaminophen (Tylenol) 650 mg PO Q4H PRN PRN Reason: Pain (Mild 1-3) Stop: 06/24/19 23:00 Last Admin: 05/09/19 12:50 Dose: 650 mg Acetaminophen (Tylenol) 650 mg PO Q4H PRN PRN Reason: temp.>100.4 Stop: 06/25/19 01:20 Al Hydrox/Mg Hydrox/Simethicone (Maalox) 30 ml PO Q4HR PRN PRN Reason: GI DISTRESS Stop: 06/24/19 23:00 Buspirone HCl (Buspar) 20 mg PO TID [facility]; Protocol Stop: 07/01/19 13:59 Last Admin: 05/10/19 08:24 Dose: 20 mg Divalproex Sodium (Depakote Dr) 500 mg PO BID [facility]; Protocol Stop: 06/26/19 16:59 Last Admin: 05/10/19 08:23 Dose: 500 mg Gabapentin (Neurontin) 300 mg PO TID [facility] Stop: 07/03/19 13:59 Last Admin: 05/10/19 08:23 Dose: 300 mg Lisinopril (Zestril) 20 mg PO DAILY [facility] Stop: 06/25/19 08:59 Last Admin: 05/10/19 08:34 Dose: Not Given Lorazepam (Ativan) 1 mg PO Q6HR PRN; Protocol PRN Reason: Agitation Stop: 04/28/20 15:51 Last Admin: 05/09/19 16:53 Dose: 1 mg Magnesium Hydroxide (Milk Of Magnesia) 30 ml PO HS PRN PRN Reason: Constipation Mirtazapine (Remeron) 15 mg PO HS [facility]; Protocol Stop: 06/25/19 20:59 Last Admin: 05/09/19 20:18 Dose: 15 mg Naproxen (Naprosyn) 500 mg PO BIDWM [facility] Stop: 06/25/19 07:59 Last Admin: 05/10/19 08:24 Dose: 500 mg Olanzapine (Zyprexa) 20 mg PO BID [facility]; Protocol Stop: 06/25/19 08:59 Last Admin: 05/10/19 08:24 Dose: 20 mg General: alert, NAD HEENT: NC/AT, PERRLA Neck: Supple Lungs: CTAB Cardiovascular: RRR, Normal S1, Normal S2 Abdomen: soft, non-tender, non-distended, positive bowel sound Extremities: clear Neurological: alert Internal Medicine Assmt/Plan - Assessment Assessment: ASSESSMENT: Acute renal failure, hypertension, anxiety, bipolar, anemia. - Plan Plan: PLAN: Fall precautions being initiated. Continue routine medications. We will continue to follow this patient. Nutritional Asmnt/Malnutr-PDOC - Dietary Evaluation Malnutrition Findings (Please click <Entered> for more info): Nutritional Asmnt/Malnutrition Start: 05/01/19 12: 37 Text: Status: Complete Freq: Protocol: Document 05/01/19 12:38 GALINA (Rec: 05/01/19 12:40 GALINA [id number]) Nutritional Asmnt/Malnutrition Patient General Information Nutritional Screening Low Risk Diagnosis Psychosis Pertinent Medical Hx/Surgical Hx Acute Renal Failure, UTI, Major Depressive disorder, HTN , Anxiety, Bipolar, Anemia. Subjective Information Pt is a 54-year-old female admitted on 04/25 d/t increased agitation and sexual inappropriateness toward medical staff. Pt is eating an estimated 88% of meals since admit date (x5 days) Per Meal/ Nutrition Activity Record. Dietary is currently providing an estimated 1940 kcals and 80 gm Pro, per Pt PO intake this is providing an estimated 1700 kcals and 70gm Pro to meet 100% kcal and 100% Pro needs. Visited pt in community room today, she gave me her food preferences and said she wanted a chocolate Ensure as a snack because another pt next to her was having one. Gave her an Ensure. Pt is loud and gets agitated easily, was yelling at another pt, telling him to be quiet when we were talking. Pt is eating well and meeting estimated nutritional needs. Pt has Altered nutrition related labs r/t renal dysfunction aeb Hx ARF and labs (04/25): BUN/Cr 21/1.67, GFR 34. Will continue to monitor renal related labs and make further recommendations should K, P, or Ca levels elevate, [place] already included in current Diet Rx. Anthropometrics HT: 59 WT: 142 LB (64.55 kg) BMI: 21.02 (Normal) GI/ Skin Integrity GI: WNL, Soft, Flat, Non- tender BM: 04/30 x1 I/O: 1360/Not Noted Skin: WNL, Intact Braulio: 20 Diet Order: Mechanical Soft, [place] Estimated Energy Needs: ( Geriatric, CBW) 6530-2255 kcals (25-30 kcals/ kg) 65-80g Pro (1.0-1.2 g/kg) 2315-2491 ml (25-30 ml/kg) Current Diet Order/ Nutrition Support Mechanical Soft, [place] Pertinent Medications Maalox (PRN), MOM (PRN) Pertinent Labs 04/25: A1c 5.5%, Na 133, Glucose 100, BUN/Cr 21/1.67, GFR 34, Tags 152, HDL 38, Hgb/ Hct 10.5/31.4 Nutritional Hx/Data Height 5 ft 9 in Height (Calculated Centimeters) 175.3 Current Weight (lbs) 142 lb Weight (Calculated Kilograms) 64.4 Weight (Calculated Grams) 28239.1 [place] Body Weight 145 LB (65.91 kg) % [place] Body Weight 98 Body Mass Index (BMI) 20.9 Weight Status Approriate GI Symptoms Last BM 04/30 x1 Skin Integrity/Comment: Skin: WNL, Intact Braulio: 20 Current %PO Good (75-100%) Estimated Nutritional Goals BEE in Kcals: Using Current wt Calories/Kcals/Kg 25-30 Kcals Calculated 3272-1926 Protein: Using Current wt Protein g/k.0-1.2 Protein Calculated 65-80 Fluid: ml 8775-0175 ml (25-30 ml/kg) Nutritional Problem 1. Problem Problem Altered nutrition related labs Etiology r/t renal dysfunction Signs/Symptoms: aeb Hx ARF and labs (04/25): BUN/Cr 21/1.67, GFR 34. Malnutrition Related to Morbid Obesity Malnutrition related to morbid obesity No Intervention/Recommendation Comments Continue Mechanical Soft, [place] diet as tolerated. Expected Outcomes/Goals Expected Outcomes/Goals 1.PO intake to continue to meet >75% of estimated nutritional needs. 2.Monitor PO intake, wt, nutrition related labs, and skin integrity. 3.F/U as low risk in 7-10 days , 05/07-05/09.
--- NOTE | 2019-05-10 22:49 | Progress Notes ---
DATE: 05/10/2019 SUBJECTIVE: The patient is still intrusive, loud at times, sometimes verbally aggressive, demanding, and disorganized on exam. I will be checking a Depakote level today, also on dosing of gabapentin, Zyprexa and Remeron, ongoing symptoms, concerns about mostly the safety of others. She does have a place to go, but remains disruptive, copycat, childlike behaviors. We will continue to monitor. Time was spent discussing with staff, reviewing vitals, chart reviewed and I did put an order in for a Depakote level tomorrow morning. JOB# [id number]
--- NOTE | 2019-05-11 12:26 | Internal Medicine Prog Note ---
Internal Medicine Subjective - Subjective Service Date: 05/11/19 Patient seen and examined:: with staff Patient is:: awake, verbal, agitated, confused Patient Complaints of:: other (hx of Htn.) Per staff patient has:: no adverse event, no episodes of fall, tolerating meds Internal Medicine Objective - Physical Exam Vitals and I&O: Vital Signs Temp 0 F 05/11/19 05:48 Pulse 79 05/11/19 09:09 Resp 19 05/11/19 07:49 BP 126/76 05/11/19 09:09 Pulse Ox 97 05/10/19 20:00 Intake & Output 05/10/19 05/11/19 05/11/19 18:59 06:59 18:59 Intake Total 1200 Balance 1200 Intake: Oral 1200 Other: # Voids 3 3 # Bowel Movements 0 0 Active Medications: Current Medications Acetaminophen (Tylenol) 650 mg PO Q4H PRN PRN Reason: Pain (Mild 1-3) Stop: 06/24/19 23:00 Last Admin: 05/09/19 12:50 Dose: 650 mg Acetaminophen (Tylenol) 650 mg PO Q4H PRN PRN Reason: temp.>100.4 Stop: 06/25/19 01:20 Al Hydrox/Mg Hydrox/Simethicone (Maalox) 30 ml PO Q4HR PRN PRN Reason: GI DISTRESS Stop: 06/24/19 23:00 Buspirone HCl (Buspar) 20 mg PO TID [facility]; Protocol Stop: 07/01/19 13:59 Last Admin: 05/11/19 09:08 Dose: 20 mg Divalproex Sodium (Depakote Dr) 500 mg PO BID [facility]; Protocol Stop: 06/26/19 16:59 Last Admin: 05/11/19 09:08 Dose: 500 mg Gabapentin (Neurontin) 300 mg PO TID [facility] Stop: 07/03/19 13:59 Last Admin: 05/11/19 09:09 Dose: 300 mg Lisinopril (Zestril) 20 mg PO DAILY [facility] Stop: 06/25/19 08:59 Last Admin: 05/11/19 09:09 Dose: 20 mg Lorazepam (Ativan) 1 mg PO Q6HR PRN; Protocol PRN Reason: Agitation Stop: 07/05/19 15:51 Last Admin: 05/09/19 16:53 Dose: 1 mg Magnesium Hydroxide (Milk Of Magnesia) 30 ml PO HS PRN PRN Reason: Constipation Mirtazapine (Remeron) 15 mg PO HS [facility]; Protocol Stop: 06/25/19 20:59 Last Admin: 05/10/19 20:47 Dose: 15 mg Naproxen (Naprosyn) 500 mg PO BIDWM [facility] Stop: 06/25/19 07:59 Last Admin: 05/11/19 09:08 Dose: 500 mg Olanzapine (Zyprexa) 20 mg PO BID [facility]; Protocol Stop: 06/25/19 08:59 Last Admin: 05/11/19 09:09 Dose: 20 mg Physical Exam: Patient needs close monitoring, patient is very irritable, easily frustrated and Intrusive. General: alert, NAD HEENT: NC/AT, PERRLA Neck: Supple Lungs: CTAB Cardiovascular: RRR, Normal S1, Normal S2 Abdomen: soft, non-tender, non-distended, positive bowel sound Extremities: clear Neurological: alert Internal Medicine Assmt/Plan - Assessment Assessment: Bipolar disorder. Acute renal failure. Hypertension. Anxiety. Anemia. - Plan Plan: Continue present meds as directed. Monitor vitals and labs. Supportive care. Psych management as per Psych. Pain management. Monitor diet and nutritional support. Continue present care management. Nutritional Asmnt/Malnutr-PDOC - Dietary Evaluation Malnutrition Findings (Please click <Entered> for more info): Nutritional Asmnt/Malnutrition Start: 05/01/19 12: 37 Text: Status: Complete Freq: Protocol: Document 05/01/19 12:38 GALINA (Rec: 05/01/19 12:40 GALINA [id number]) Nutritional Asmnt/Malnutrition Patient General Information Nutritional Screening Low Risk Diagnosis Psychosis Pertinent Medical Hx/Surgical Hx Acute Renal Failure, UTI, Major Depressive disorder, HTN , Anxiety, Bipolar, Anemia. Subjective Information Pt is a 54-year-old female admitted on 04/25 d/t increased agitation and sexual inappropriateness toward medical staff. Pt is eating an estimated 88% of meals since admit date (x5 days) Per Meal/ Nutrition Activity Record. Dietary is currently providing an estimated 1940 kcals and 80 gm Pro, per Pt PO intake this is providing an estimated 1700 kcals and 70gm Pro to meet 100% kcal and 100% Pro needs. Visited pt in community room today, she gave me her food preferences and said she wanted a chocolate Ensure as a snack because another pt next to her was having one. Gave her an Ensure. Pt is loud and gets agitated easily, was yelling at another pt, telling him to be quiet when we were talking. Pt is eating well and meeting estimated nutritional needs. Pt has Altered nutrition related labs r/t renal dysfunction aeb Hx ARF and labs (04/25): BUN/Cr 21/1.67, GFR 34. Will continue to monitor renal related labs and make further recommendations should K, P, or Ca levels elevate, [place] already included in current Diet Rx. Anthropometrics HT: 59 WT: 142 LB (64.55 kg) BMI: 21.02 (Normal) GI/ Skin Integrity GI: WNL, Soft, Flat, Non- tender BM: 04/30 x1 I/O: 1360/Not Noted Skin: WNL, Intact Braulio: 20 Diet Order: Mechanical Soft, [place] Estimated Energy Needs: ( Geriatric, CBW) 9257-8615 kcals (25-30 kcals/ kg) 65-80g Pro (1.0-1.2 g/kg) 5923-7754 ml (25-30 ml/kg) Current Diet Order/ Nutrition Support Mechanical Soft, [place] Pertinent Medications Maalox (PRN), MOM (PRN) Pertinent Labs 04/25: A1c 5.5%, Na 133, Glucose 100, BUN/Cr 21/1.67, GFR 34, Tags 152, HDL 38, Hgb/ Hct 10.5/31.4 Nutritional Hx/Data Height 1.75 m Height (Calculated Centimeters) 175.3 Current Weight (lbs) 64.41 kg Weight (Calculated Kilograms) 64.4 Weight (Calculated Grams) 99274.1 [place] Body Weight 145 LB (65.91 kg) % [place] Body Weight 98 Body Mass Index (BMI) 20.9 Weight Status Approriate GI Symptoms Last BM 04/30 x1 Skin Integrity/Comment: Skin: WNL, Intact Braulio: 20 Current %PO Good (75-100%) Estimated Nutritional Goals BEE in Kcals: Using Current wt Calories/Kcals/Kg 25-30 Kcals Calculated 9923-7498 Protein: Using Current wt Protein g/k.0-1.2 Protein Calculated 65-80 Fluid: ml 8177-3156 ml (25-30 ml/kg) Nutritional Problem 1. Problem Problem Altered nutrition related labs Etiology r/t renal dysfunction Signs/Symptoms: aeb Hx ARF and labs (04/25): BUN/Cr 21/1.67, GFR 34. Malnutrition Related to Morbid Obesity Malnutrition related to morbid obesity No Intervention/Recommendation Comments Continue Mechanical Soft, [place] diet as tolerated. Expected Outcomes/Goals Expected Outcomes/Goals 1.PO intake to continue to meet >75% of estimated nutritional needs. 2.Monitor PO intake, wt, nutrition related labs, and skin integrity. 3.F/U as low risk in 7-10 days , 05/07-05/09.
--- NOTE | 2019-05-11 20:28 | Progress Notes ---
DATE: 05/11/2019 SUBJECTIVE: The patient is currently in the hospital, still yelling, upset, intrusive, is mildly calmer today, still disorganized on exam. Recent dose adjustments of medications. Currently on dosing of Zyprexa, BuSpar, Depakote. I did order recent labs as well. Currently pending lab results. The patient remains very impulsive, highly unpredictable, ongoing symptoms, concerns about her ability to really stay safe around others. Ongoing outbursts, loud. Time was spent reviewing the chart, medications reviewed, vitals reviewed, lab reviewed. JOB# [id number]
--- NOTE | 2019-05-12 13:23 | Progress Notes ---
DATE: 05/12/2019 SUBJECTIVE: The patient is currently in the hospital, demanding, agitated, loud, stating she cannot walk, but she is clearly walking. Fair sleep and appetite. She is a little bit less intrusive, overall improved. Labs were reviewed. I did order a Depakote level, currently pending a Depakote level, hard time controlling her behaviors. Mild improvement noted. Currently on dosing of BuSpar, Depakote, Zyprexa. Time was spent reviewing the chart. Nursing notes, discussion with the patient. Med reviewed. Lab reviewed. JOB# [id number]
--- NOTE | 2019-05-12 13:57 | Internal Medicine Prog Note ---
Internal Medicine Subjective - Subjective Service Date: 05/12/19 Patient seen and examined:: with staff, chart reviewed Patient is:: awake, verbal, agitated, confused Patient Complaints of:: other (hx of Htn.) Per staff patient has:: no adverse event, no episodes of fall, tolerating meds Internal Medicine Objective - Physical Exam Vitals and I&O: Vital Signs Temp 98.8 F 05/11/19 20:50 Pulse 101 05/12/19 08:38 Resp 20 05/12/19 08:00 BP 92/63 05/12/19 08:38 Pulse Ox 99 05/11/19 20:50 Intake & Output 05/11/19 05/12/19 05/12/19 18:59 06:59 18:59 Intake Total 1200 120 120 Balance 1200 120 120 Intake: Oral 1200 120 120 Other: # Voids 2 2 # Bowel Movements 1 0 0 Active Medications: Current Medications Acetaminophen (Tylenol) 650 mg PO Q4H PRN PRN Reason: Pain (Mild 1-3) Stop: 06/24/19 23:00 Last Admin: 05/12/19 11:39 Dose: 650 mg Acetaminophen (Tylenol) 650 mg PO Q4H PRN PRN Reason: temp.>100.4 Stop: 06/25/19 01:20 Al Hydrox/Mg Hydrox/Simethicone (Maalox) 30 ml PO Q4HR PRN PRN Reason: GI DISTRESS Stop: 06/24/19 23:00 Buspirone HCl (Buspar) 20 mg PO TID [facility]; Protocol Stop: 07/01/19 13:59 Last Admin: 05/12/19 13:36 Dose: 20 mg Divalproex Sodium (Depakote Dr) 500 mg PO BID [facility]; Protocol Stop: 06/26/19 16:59 Last Admin: 05/12/19 08:28 Dose: 500 mg Gabapentin (Neurontin) 300 mg PO TID [facility] Stop: 07/03/19 13:59 Last Admin: 05/12/19 13:36 Dose: 300 mg Lisinopril (Zestril) 20 mg PO DAILY [facility] Stop: 06/25/19 08:59 Last Admin: 05/12/19 08:38 Dose: Not Given Lorazepam (Ativan) 1 mg PO Q6HR PRN; Protocol PRN Reason: Agitation Stop: 07/05/19 15:51 Last Admin: 05/12/19 10:38 Dose: 1 mg Magnesium Hydroxide (Milk Of Magnesia) 30 ml PO HS PRN PRN Reason: Constipation Mirtazapine (Remeron) 15 mg PO HS [facility]; Protocol Stop: 06/25/19 20:59 Last Admin: 05/11/19 20:51 Dose: 15 mg Naproxen (Naprosyn) 500 mg PO BIDWM [facility] Stop: 06/25/19 07:59 Last Admin: 05/12/19 08:33 Dose: 500 mg Olanzapine (Zyprexa) 20 mg PO BID [facility]; Protocol Stop: 06/25/19 08:59 Last Admin: 05/12/19 08:27 Dose: 20 mg Physical Exam: Patient needs close monitoring, patient has been agitated, still having screaming episodes. General: alert, NAD HEENT: NC/AT, PERRLA Neck: Supple Lungs: CTAB Cardiovascular: RRR, Normal S1, Normal S2 Abdomen: soft, non-tender, non-distended, positive bowel sound Extremities: clear Neurological: alert Internal Medicine Assmt/Plan - Assessment Assessment: Bipolar disorder. Acute renal failure. Hypertension. Anxiety. Anemia. - Plan Plan: Continue present meds as directed. Monitor vitals and labs. Supportive care. Psych management as per Psych. Pain management. Monitor diet and nutritional support. Continue present care management. Nutritional Asmnt/Malnutr-PDOC - Dietary Evaluation Malnutrition Findings (Please click <Entered> for more info): Nutritional Asmnt/Malnutrition Start: 05/01/19 12: 37 Text: Status: Complete Freq: Protocol: Document 05/01/19 12:38 GALINA (Rec: 05/01/19 12:40 GALINA [id number]) Nutritional Asmnt/Malnutrition Patient General Information Nutritional Screening Low Risk Diagnosis Psychosis Pertinent Medical Hx/Surgical Hx Acute Renal Failure, UTI, Major Depressive disorder, HTN , Anxiety, Bipolar, Anemia. Subjective Information Pt is a 54-year-old female admitted on 04/25 d/t increased agitation and sexual inappropriateness toward medical staff. Pt is eating an estimated 88% of meals since admit date (x5 days) Per Meal/ Nutrition Activity Record. Dietary is currently providing an estimated 1940 kcals and 80 gm Pro, per Pt PO intake this is providing an estimated 1700 kcals and 70gm Pro to meet 100% kcal and 100% Pro needs. Visited pt in community room today, she gave me her food preferences and said she wanted a chocolate Ensure as a snack because another pt next to her was having one. Gave her an Ensure. Pt is loud and gets agitated easily, was yelling at another pt, telling him to be quiet when we were talking. Pt is eating well and meeting estimated nutritional needs. Pt has Altered nutrition related labs r/t renal dysfunction aeb Hx ARF and labs (04/25): BUN/Cr 21/1.67, GFR 34. Will continue to monitor renal related labs and make further recommendations should K, P, or Ca levels elevate, [place] already included in current Diet Rx. Anthropometrics HT: 59 WT: 142 LB (64.55 kg) BMI: 21.02 (Normal) GI/ Skin Integrity GI: WNL, Soft, Flat, Non- tender BM: 04/30 x1 I/O: 1360/Not Noted Skin: WNL, Intact Braulio: 20 Diet Order: Mechanical Soft, [place] Estimated Energy Needs: ( Geriatric, CBW) 6207-8696 kcals (25-30 kcals/ kg) 65-80g Pro (1.0-1.2 g/kg) 4864-7230 ml (25-30 ml/kg) Current Diet Order/ Nutrition Support Mechanical Soft, [place] Pertinent Medications Maalox (PRN), MOM (PRN) Pertinent Labs 04/25: A1c 5.5%, Na 133, Glucose 100, BUN/Cr 21/1.67, GFR 34, Tags 152, HDL 38, Hgb/ Hct 10.5/31.4 Nutritional Hx/Data Height 1.75 m Height (Calculated Centimeters) 175.3 Current Weight (lbs) 64.41 kg Weight (Calculated Kilograms) 64.4 Weight (Calculated Grams) 83917.1 [place] Body Weight 145 LB (65.91 kg) % [place] Body Weight 98 Body Mass Index (BMI) 20.9 Weight Status Approriate GI Symptoms Last BM 04/30 x1 Skin Integrity/Comment: Skin: WNL, Intact Braulio: 20 Current %PO Good (75-100%) Estimated Nutritional Goals BEE in Kcals: Using Current wt Calories/Kcals/Kg 25-30 Kcals Calculated 4383-2191 Protein: Using Current wt Protein g/k.0-1.2 Protein Calculated 65-80 Fluid: ml 9401-7219 ml (25-30 ml/kg) Nutritional Problem 1. Problem Problem Altered nutrition related labs Etiology r/t renal dysfunction Signs/Symptoms: aeb Hx ARF and labs (04/25): BUN/Cr 21/1.67, GFR 34. Malnutrition Related to Morbid Obesity Malnutrition related to morbid obesity No Intervention/Recommendation Comments Continue Mechanical Soft, [place] diet as tolerated. Expected Outcomes/Goals Expected Outcomes/Goals 1.PO intake to continue to meet >75% of estimated nutritional needs. 2.Monitor PO intake, wt, nutrition related labs, and skin integrity. 3.F/U as low risk in 7-10 days , 05/07-05/09.
--- NOTE | 2019-05-13 11:52 | Internal Medicine Prog Note ---
Internal Medicine Subjective - Subjective Service Date: 05/13/19 Patient seen and examined:: with staff, chart reviewed Patient is:: awake, verbal, agitated, confused Patient Complaints of:: other (hx of Htn.) Per staff patient has:: no adverse event, no episodes of fall, tolerating meds Internal Medicine Objective - Physical Exam Vitals and I&O: Vital Signs Temp 97.9 F 05/12/19 20:46 Pulse 89 05/13/19 08:52 Resp 20 05/13/19 08:00 BP 94/52 05/13/19 08:52 Pulse Ox 95 05/12/19 20:46 Intake & Output 05/12/19 05/13/19 05/13/19 18:59 06:59 18:59 Intake Total 1320 240 Balance 1320 240 Intake: Oral 1320 240 Other: # Voids 5 2 # Bowel Movements 1 0 Active Medications: Current Medications Acetaminophen (Tylenol) 650 mg PO Q4H PRN PRN Reason: Pain (Mild 1-3) Stop: 06/24/19 23:00 Last Admin: 05/12/19 11:39 Dose: 650 mg Acetaminophen (Tylenol) 650 mg PO Q4H PRN PRN Reason: temp.>100.4 Stop: 06/25/19 01:20 Al Hydrox/Mg Hydrox/Simethicone (Maalox) 30 ml PO Q4HR PRN PRN Reason: GI DISTRESS Stop: 06/24/19 23:00 Buspirone HCl (Buspar) 20 mg PO TID [facility]; Protocol Stop: 07/01/19 13:59 Last Admin: 05/13/19 08:42 Dose: 20 mg Divalproex Sodium (Depakote Dr) 500 mg PO BID [facility]; Protocol Stop: 06/26/19 16:59 Last Admin: 05/13/19 08:44 Dose: 500 mg Gabapentin (Neurontin) 300 mg PO TID [facility] Stop: 07/03/19 13:59 Last Admin: 05/13/19 08:43 Dose: 300 mg Lisinopril (Zestril) 20 mg PO DAILY [facility] Stop: 06/25/19 08:59 Last Admin: 05/13/19 08:52 Dose: Not Given Lorazepam (Ativan) 1 mg PO Q6HR PRN; Protocol PRN Reason: Agitation Stop: 07/05/19 15:51 Last Admin: 05/12/19 21:21 Dose: 1 mg Magnesium Hydroxide (Milk Of Magnesia) 30 ml PO HS PRN PRN Reason: Constipation Mirtazapine (Remeron) 15 mg PO HS [facility]; Protocol Stop: 06/25/19 20:59 Last Admin: 05/12/19 21:21 Dose: 15 mg Naproxen (Naprosyn) 500 mg PO BIDWM [facility] Stop: 06/25/19 07:59 Last Admin: 05/13/19 08:45 Dose: 500 mg Olanzapine (Zyprexa) 20 mg PO BID [facility]; Protocol Stop: 06/25/19 08:59 Last Admin: 05/13/19 08:43 Dose: 20 mg Physical Exam: atient needs close monitoring, patient is still acting out and paranoid. General: alert, NAD HEENT: NC/AT, PERRLA Neck: Supple Lungs: CTAB Cardiovascular: RRR, Normal S1, Normal S2 Abdomen: soft, non-tender, non-distended, positive bowel sound Extremities: clear Neurological: alert Internal Medicine Assmt/Plan - Assessment Assessment: Bipolar disorder. Acute renal failure. Hypertension. Anxiety. Anemia. - Plan Plan: Continue present meds as directed. Monitor vitals and labs. Supportive care. Psych management as per Psych. Pain management. Monitor diet and nutritional support. Continue present care management. Nutritional Asmnt/Malnutr-PDOC - Dietary Evaluation Malnutrition Findings (Please click <Entered> for more info): Nutritional Asmnt/Malnutrition Start: 05/01/19 12: 37 Text: Status: Complete Freq: Protocol: Document 05/01/19 12:38 GALINA (Rec: 05/01/19 12:40 GALINA [id number]) Nutritional Asmnt/Malnutrition Patient General Information Nutritional Screening Low Risk Diagnosis Psychosis Pertinent Medical Hx/Surgical Hx Acute Renal Failure, UTI, Major Depressive disorder, HTN , Anxiety, Bipolar, Anemia. Subjective Information Pt is a 54-year-old female admitted on 04/25 d/t increased agitation and sexual inappropriateness toward medical staff. Pt is eating an estimated 88% of meals since admit date (x5 days) Per Meal/ Nutrition Activity Record. Dietary is currently providing an estimated 1940 kcals and 80 gm Pro, per Pt PO intake this is providing an estimated 1700 kcals and 70gm Pro to meet 100% kcal and 100% Pro needs. Visited pt in community room today, she gave me her food preferences and said she wanted a chocolate Ensure as a snack because another pt next to her was having one. Gave her an Ensure. Pt is loud and gets agitated easily, was yelling at another pt, telling him to be quiet when we were talking. Pt is eating well and meeting estimated nutritional needs. Pt has Altered nutrition related labs r/t renal dysfunction aeb Hx ARF and labs (04/25): BUN/Cr 21/1.67, GFR 34. Will continue to monitor renal related labs and make further recommendations should K, P, or Ca levels elevate, [place] already included in current Diet Rx. Anthropometrics HT: 59 WT: 142 LB (64.55 kg) BMI: 21.02 (Normal) GI/ Skin Integrity GI: WNL, Soft, Flat, Non- tender BM: 04/30 x1 I/O: 1360/Not Noted Skin: WNL, Intact Braulio: 20 Diet Order: Mechanical Soft, [place] Estimated Energy Needs: ( Geriatric, CBW) 2381-2101 kcals (25-30 kcals/ kg) 65-80g Pro (1.0-1.2 g/kg) 6759-7818 ml (25-30 ml/kg) Current Diet Order/ Nutrition Support Mechanical Soft, [place] Pertinent Medications Maalox (PRN), MOM (PRN) Pertinent Labs 04/25: A1c 5.5%, Na 133, Glucose 100, BUN/Cr 21/1.67, GFR 34, Tags 152, HDL 38, Hgb/ Hct 10.5/31.4 Nutritional Hx/Data Height 1.75 m Height (Calculated Centimeters) 175.3 Current Weight (lbs) 64.41 kg Weight (Calculated Kilograms) 64.4 Weight (Calculated Grams) 67993.1 [place] Body Weight 145 LB (65.91 kg) % [place] Body Weight 98 Body Mass Index (BMI) 20.9 Weight Status Approriate GI Symptoms Last BM 04/30 x1 Skin Integrity/Comment: Skin: WNL, Intact Braulio: 20 Current %PO Good (75-100%) Estimated Nutritional Goals BEE in Kcals: Using Current wt Calories/Kcals/Kg 25-30 Kcals Calculated 6240-7925 Protein: Using Current wt Protein g/k.0-1.2 Protein Calculated 65-80 Fluid: ml 7650-7737 ml (25-30 ml/kg) Nutritional Problem 1. Problem Problem Altered nutrition related labs Etiology r/t renal dysfunction Signs/Symptoms: aeb Hx ARF and labs (04/25): BUN/Cr 21/1.67, GFR 34. Malnutrition Related to Morbid Obesity Malnutrition related to morbid obesity No Intervention/Recommendation Comments Continue Mechanical Soft, [place] diet as tolerated. Expected Outcomes/Goals Expected Outcomes/Goals 1.PO intake to continue to meet >75% of estimated nutritional needs. 2.Monitor PO intake, wt, nutrition related labs, and skin integrity. 3.F/U as low risk in 7-10 days , 05/07-05/09.
--- NOTE | 2019-05-13 12:02 | Discharge Summary ---
DATE OF DISCHARGE: 05/13/2019 HISTORY OF PRESENT ILLNESS: A 54-year-old female transferred from [facility] from a [facility], agitated, aggressive, intrusive, poor historian, disorganized, flight of ideas, needing a lot of redirection and bizarre. PAST PSYCHIATRIC HISTORY: Long history of bipolar. FAMILY HISTORY: Noncontributory. SOCIAL HISTORY: Born in [place], not , no kids. The patient was in fact coming from a board and care. MEDICAL HISTORY: Noted. MEDICATIONS: Noted. PROVISIONAL DIAGNOSIS: Bipolar per history. MEDICAL: Please see full H and P. HOSPITAL COURSE: After initial assessment, the patient was restarted on medications that were adjusted, titrated. Over the course of treatment, mood improved, affect improved. She was significantly calmer, did well on mirtazapine, Zyprexa, Ativan p.r.n., gabapentin, Depakote, BuSpar, attempt to check labs as well. Over the course of treatment, she was noted to be a lot calmer, still hyperverbal, focused on coffee, ongoing delusions, but significantly less. We were also in touch with the court. No SI. No HI. Not agitated, redirectable, sleeping well, eating well. CONDITION UPON DISCHARGE: Improved, better ADLs, calmer, more redirectable, more engaged, no SI, no HI, no overt hallucinations. Some grandiosities, better impulse control. Tolerant to medications. DISCHARGE DIAGNOSES: Bipolar per history. PAST MEDICAL HISTORY: Please see full H and P. PROGNOSIS: The patient follows up with outpatient mental health services and remains compliant with treatment. Prognosis will improve, otherwise guarded. JOB# [id number]
--- NOTE | 2019-05-14 17:59 | Progress Notes ---
DATE: 05/14/2019 SUBJECTIVE: The patient was sent to the dining area. The patient was loud. The patient already has been ordered for discharge, but the patient started to have outburst behavior. Since then discharge otherwise, has been on hold. We will continue to monitor the patient's behavior. Otherwise, the patient is in no acute distress. OBJECTIVE: VITAL SIGNS: Temperature 97.8, heart rate 84, blood pressure 102/55, respiration 18 and 96% on room air. HEENT: Head is atraumatic and normocephalic. Eyes: Bilateral conjunctivae are clear. Bilateral pupils are equally round and reactive. NECK: Supple. No JVD. CARDIOVASCULAR: S1 and S2, without murmur. PULMONARY: Clear to auscultation. GASTROINTESTINAL: Soft and nontender without guarding. Positive bowel sounds. MUSCULOSKELETAL: No clubbing. No cyanosis. ASSESSMENT: 1. Bipolar disorder. 2. Hypertension. 3. Osteoarthritis. PLAN: We will continue to keep the patient to inpatient Psychiatric Unit. We will monitor the patient's condition and behavior. We will put the patient on fall precautions. Treatment plans were discussed with the patient's nurse. Treatment plans were discussed with Dr. Oconnell. JOB# [id number]
--- NOTE | 2019-05-15 01:38 | Progress Notes ---
DATE: 05/14/2019 The patient was seen and evaluated. The patient's chart reviewed. The patient was discussed with nursing staff. Covering for Dr. Crawford. IDENTIFYING DATA: A 54-year-old female brought in here from [place] after getting medically cleared for aggressive and agitated state. In the last 24 hours, the patient was going to be discharged to [facility]. At that time, facility has not been able to locate transition. Today on [id number] evaluation, observed to be tangential. She is redirectable. Awaiting transition to [facility]. We will continue monitoring. She continues to be hyperverbal, although focused. Denies any suicidal or homicidal ideations. The patient is concerned about going back to [facility] because she reports she needs the walker, although she is walking comfortably and no pain expressed. ASSESSMENT AND PLAN: History of bipolar, rule out schizoaffective disorder. We will continue with primary psychiatrist's treatment plan and goals. We will continue disposition to [facility] when bed available. JOB# [id number]
--- NOTE | 2019-05-15 13:37 | Internal Medicine Prog Note ---
Internal Medicine Subjective - Subjective Patient is:: asleep, in bed, agitated, confused Patient Complaints of:: other (hx of Htn.) Per staff patient has:: no adverse event, no episodes of fall, tolerating meds Internal Medicine Objective - Results Recent Labs: Laboratory Last Values POC Glucose 191 MG/DL (70 - 105) H 05/15/19 11:50 - Physical Exam Vitals and I&O: Vital Signs Temp 97.0 F 05/14/19 20:48 Pulse 88 05/15/19 09:13 Resp 20 05/14/19 20:48 BP 99/64 05/15/19 09:13 Pulse Ox 99 05/14/19 20:48 Intake & Output 05/14/19 05/15/19 05/15/19 17:59 06:59 18:59 Intake Total Balance Intake: Oral Other: # Voids # Bowel Movements Active Medications: Current Medications Acetaminophen (Tylenol) 650 mg PO Q4H PRN PRN Reason: Pain (Mild 1-3) Stop: 06/24/19 23:00 Last Admin: 05/14/19 22:37 Dose: 650 mg Acetaminophen (Tylenol) 650 mg PO Q4H PRN PRN Reason: temp.>100.4 Stop: 06/25/19 01:20 Al Hydrox/Mg Hydrox/Simethicone (Maalox) 30 ml PO Q4HR PRN PRN Reason: GI DISTRESS Stop: 06/24/19 23:00 Buspirone HCl (Buspar) 20 mg PO TID [facility]; Protocol Stop: 07/01/19 13:59 Last Admin: 05/15/19 09:20 Dose: 20 mg Divalproex Sodium (Depakote Dr) 500 mg PO BID [facility]; Protocol Stop: 06/26/19 16:59 Last Admin: 05/15/19 09:20 Dose: 500 mg Gabapentin (Neurontin) 300 mg PO TID [facility] Stop: 07/03/19 13:59 Last Admin: 05/15/19 09:20 Dose: 300 mg Lisinopril (Zestril) 20 mg PO DAILY [facility] Stop: 06/25/19 08:59 Last Admin: 05/15/19 09:13 Dose: Not Given Lorazepam (Ativan) 1 mg PO Q6HR PRN; Protocol PRN Reason: Agitation Stop: 07/05/19 15:51 Last Admin: 05/14/19 22:36 Dose: 1 mg Magnesium Hydroxide (Milk Of Magnesia) 30 ml PO HS PRN PRN Reason: Constipation Mirtazapine (Remeron) 15 mg PO HS [facility]; Protocol Stop: 06/25/19 20:59 Last Admin: 05/14/19 21:17 Dose: 15 mg Naproxen (Naprosyn) 500 mg PO BIDWM [facility] Stop: 06/25/19 07:59 Last Admin: 05/15/19 09:20 Dose: 500 mg Olanzapine (Zyprexa) 20 mg PO BID [facility]; Protocol Stop: 06/25/19 08:59 Last Admin: 05/15/19 09:21 Dose: 20 mg General: alert, NAD HEENT: NC/AT, PERRLA Neck: Supple Lungs: CTAB Cardiovascular: RRR Abdomen: soft, non-tender, non-distended Extremities: clear Neurological: alert Internal Medicine Assmt/Plan - Assessment Assessment: HTN Anxiety Bipolar OA - Plan Plan: Continue current managements Monitor VS Monitor Labs Psych management per Psych Pain managment as needed. Monitor nutritional needs. Fall Precaution Continue collaboration with interdisciplinary team. Nutritional Asmnt/Malnutr-PDOC - Dietary Evaluation Malnutrition Findings (Please click <Entered> for more info): Nutritional Asmnt/Malnutrition Start: 05/01/19 12: 37 Text: Status: Complete Freq: Protocol: Document 05/01/19 12:38 GALINA (Rec: 05/01/19 12:40 GALINA [id number]) Nutritional Asmnt/Malnutrition Patient General Information Nutritional Screening Low Risk Diagnosis Psychosis Pertinent Medical Hx/Surgical Hx Acute Renal Failure, UTI, Major Depressive disorder, HTN , Anxiety, Bipolar, Anemia. Subjective Information Pt is a 54-year-old female admitted on 04/25 d/t increased agitation and sexual inappropriateness toward medical staff. Pt is eating an estimated 88% of meals since admit date (x5 days) Per Meal/ Nutrition Activity Record. Dietary is currently providing an estimated 1940 kcals and 80 gm Pro, per Pt PO intake this is providing an estimated 1700 kcals and 70gm Pro to meet 100% kcal and 100% Pro needs. Visited pt in community room today, she gave me her food preferences and said she wanted a chocolate Ensure as a snack because another pt next to her was having one. Gave her an Ensure. Pt is loud and gets agitated easily, was yelling at another pt, telling him to be quiet when we were talking. Pt is eating well and meeting estimated nutritional needs. Pt has Altered nutrition related labs r/t renal dysfunction aeb Hx ARF and labs (04/25): BUN/Cr 21/1.67, GFR 34. Will continue to monitor renal related labs and make further recommendations should K, P, or Ca levels elevate, [place] already included in current Diet Rx. Anthropometrics HT: 59 WT: 142 LB (64.55 kg) BMI: 21.02 (Normal) GI/ Skin Integrity GI: WNL, Soft, Flat, Non- tender BM: 04/30 x1 I/O: 1360/Not Noted Skin: WNL, Intact Braulio: 20 Diet Order: Mechanical Soft, [place] Estimated Energy Needs: ( Geriatric, CBW) 3365-2917 kcals (25-30 kcals/ kg) 65-80g Pro (1.0-1.2 g/kg) 2706-1784 ml (25-30 ml/kg) Current Diet Order/ Nutrition Support Mechanical Soft, [place] Pertinent Medications Maalox (PRN), MOM (PRN) Pertinent Labs 04/25: A1c 5.5%, Na 133, Glucose 100, BUN/Cr 21/1.67, GFR 34, Tags 152, HDL 38, Hgb/ Hct 10.5/31.4 Nutritional Hx/Data Height 5 ft 9 in Height (Calculated Centimeters) 175.3 Current Weight (lbs) 142 lb Weight (Calculated Kilograms) 64.4 Weight (Calculated Grams) 40979.1 [place] Body Weight 145 LB (65.91 kg) % [place] Body Weight 98 Body Mass Index (BMI) 20.9 Weight Status Approriate GI Symptoms Last BM 04/30 x1 Skin Integrity/Comment: Skin: WNL, Intact Braulio: 20 Current %PO Good (75-100%) Estimated Nutritional Goals BEE in Kcals: Using Current wt Calories/Kcals/Kg 25-30 Kcals Calculated 2314-0282 Protein: Using Current wt Protein g/k.0-1.2 Protein Calculated 65-80 Fluid: ml 0912-5014 ml (25-30 ml/kg) Nutritional Problem 1. Problem Problem Altered nutrition related labs Etiology r/t renal dysfunction Signs/Symptoms: aeb Hx ARF and labs (04/25): BUN/Cr 21/1.67, GFR 34. Malnutrition Related to Morbid Obesity Malnutrition related to morbid obesity No Intervention/Recommendation Comments Continue Mechanical Soft, [place] diet as tolerated. Expected Outcomes/Goals Expected Outcomes/Goals 1.PO intake to continue to meet >75% of estimated nutritional needs. 2.Monitor PO intake, wt, nutrition related labs, and skin integrity. 3.F/U as low risk in 7-10 days , 05/07-05/09.
--- NOTE | 2019-05-15 22:44 | Progress Notes ---
DATE: Continues to be hyperverbal, yelling, reporting that she needs a wheelchair now or walker as she cannot walk, despite her walking in no physical ailment is noted. EXAMINATION: Hyperverbal, although ____, demanding, irrational statements, but redirectable. I appreciate the FRONT OFFICE ADMINISTRATOR, Bob Conrad recommendations and was placed on fall precaution. Further monitoring. JOB# [id number]
--- NOTE | 2019-05-16 12:31 | Discharge Summary ---
DATE OF DISCHARGE: 05/16/2019 HISTORY OF PRESENT ILLNESS: A 54-year-old female, currently transferred from [place] after clearance to the [facility], agitated, aggressive, disorganized, nonsensical, delusional, flight of ideas. PAST PSYCHIATRIC HISTORY: Bipolar. SOCIAL HISTORY: Noted. PROVISIONAL DIAGNOSIS: Bipolar per history. HOSPITAL COURSE: Please see full discharge summary. It is already completed on 05/13/2019. There was some delays in her discharge. The patient is to be discharged today, 05/16/2019. No SI. No HI. The patient seems intrusive, forgetful, but otherwise not agitated, not aggressive. Generally improved over the past 24-48 hours. Staff noting improvement. No SI, no HI, currently on dosing of Depakote, level of 48. Currently on dosing of Zyprexa. We will plan to discharge today. JOB# [id number]
--- NOTE | 2019-05-16 17:10 | Internal Medicine Prog Note ---
Internal Medicine Subjective - Subjective Service Date: 05/16/19 Patient is:: asleep, in bed, agitated, confused Patient Complaints of:: other (hx of Htn.) Per staff patient has:: no adverse event, no episodes of fall, tolerating meds Internal Medicine Objective - Results Recent Labs: Laboratory Last Values POC Glucose 191 MG/DL (70 - 105) H 05/15/19 11:50 - Physical Exam Vitals and I&O: Vital Signs Temp 98.2 F 05/16/19 14:00 Pulse 80 05/16/19 14:00 Resp 18 05/16/19 14:00 BP 106/54 05/16/19 14:00 Pulse Ox 96 05/16/19 14:00 Intake & Output 05/15/19 05/16/19 05/16/19 18:59 06:59 18:59 Intake Total 1050 120 Balance 1050 120 Intake: Oral 1050 120 Other: # Voids 3 # Bowel Movements 0 Active Medications: Current Medications Acetaminophen (Tylenol) 650 mg PO Q4H PRN PRN Reason: Pain (Mild 1-3) Stop: 06/24/19 23:00 Last Admin: 05/14/19 22:37 Dose: 650 mg Acetaminophen (Tylenol) 650 mg PO Q4H PRN PRN Reason: temp.>100.4 Stop: 06/25/19 01:20 Al Hydrox/Mg Hydrox/Simethicone (Maalox) 30 ml PO Q4HR PRN PRN Reason: GI DISTRESS Stop: 06/24/19 23:00 Buspirone HCl (Buspar) 20 mg PO TID [facility]; Protocol Stop: 07/01/19 13:59 Last Admin: 05/16/19 13:52 Dose: 20 mg Divalproex Sodium (Depakote Dr) 500 mg PO BID [facility]; Protocol Stop: 06/26/19 16:59 Last Admin: 05/16/19 16:45 Dose: 500 mg Gabapentin (Neurontin) 300 mg PO TID [facility] Stop: 07/03/19 13:59 Last Admin: 05/16/19 13:58 Dose: 300 mg Lisinopril (Zestril) 20 mg PO DAILY [facility] Stop: 06/25/19 08:59 Last Admin: 05/16/19 08:26 Dose: Not Given Lorazepam (Ativan) 1 mg PO Q6HR PRN; Protocol PRN Reason: Agitation Stop: 07/05/19 15:51 Last Admin: 05/16/19 16:44 Dose: 1 mg Magnesium Hydroxide (Milk Of Magnesia) 30 ml PO HS PRN PRN Reason: Constipation Mirtazapine (Remeron) 15 mg PO HS [facility]; Protocol Stop: 06/25/19 20:59 Last Admin: 05/15/19 20:51 Dose: 15 mg Naproxen (Naprosyn) 500 mg PO BIDWM [facility] Stop: 06/25/19 07:59 Last Admin: 05/16/19 08:00 Dose: 500 mg Olanzapine (Zyprexa) 20 mg PO BID [facility]; Protocol Stop: 06/25/19 08:59 Last Admin: 05/16/19 16:44 Dose: 20 mg General: alert, NAD HEENT: NC/AT, PERRLA Neck: Supple Lungs: CTAB Cardiovascular: RRR Abdomen: soft, non-tender, non-distended Extremities: clear Neurological: alert Internal Medicine Assmt/Plan - Assessment Assessment: ASSESSMENT: Acute renal failure, hypertension, anxiety, bipolar, anemia. - Plan Plan: PLAN: Fall precautions being initiated. Continue routine medications. We will continue to follow this patient. Nutritional Asmnt/Malnutr-PDOC - Dietary Evaluation Malnutrition Findings (Please click <Entered> for more info): Nutritional Asmnt/Malnutrition Start: 05/01/19 12: 37 Text: Status: Complete Freq: Protocol: Document 05/01/19 12:38 GALINA (Rec: 05/01/19 12:40 GALINA [id number]) Nutritional Asmnt/Malnutrition Patient General Information Nutritional Screening Low Risk Diagnosis Psychosis Pertinent Medical Hx/Surgical Hx Acute Renal Failure, UTI, Major Depressive disorder, HTN , Anxiety, Bipolar, Anemia. Subjective Information Pt is a 54-year-old female admitted on 04/25 d/t increased agitation and sexual inappropriateness toward medical staff. Pt is eating an estimated 88% of meals since admit date (x5 days) Per Meal/ Nutrition Activity Record. Dietary is currently providing an estimated 1940 kcals and 80 gm Pro, per Pt PO intake this is providing an estimated 1700 kcals and 70gm Pro to meet 100% kcal and 100% Pro needs. Visited pt in community room today, she gave me her food preferences and said she wanted a chocolate Ensure as a snack because another pt next to her was having one. Gave her an Ensure. Pt is loud and gets agitated easily, was yelling at another pt, telling him to be quiet when we were talking. Pt is eating well and meeting estimated nutritional needs. Pt has Altered nutrition related labs r/t renal dysfunction aeb Hx ARF and labs (04/25): BUN/Cr 21/1.67, GFR 34. Will continue to monitor renal related labs and make further recommendations should K, P, or Ca levels elevate, [place] already included in current Diet Rx. Anthropometrics HT: 59 WT: 142 LB (64.55 kg) BMI: 21.02 (Normal) GI/ Skin Integrity GI: WNL, Soft, Flat, Non- tender BM: 04/30 x1 I/O: 1360/Not Noted Skin: WNL, Intact Braulio: 20 Diet Order: Mechanical Soft, [place] Estimated Energy Needs: ( Geriatric, CBW) 0619-3916 kcals (25-30 kcals/ kg) 65-80g Pro (1.0-1.2 g/kg) 7107-9118 ml (25-30 ml/kg) Current Diet Order/ Nutrition Support Mechanical Soft, [place] Pertinent Medications Maalox (PRN), MOM (PRN) Pertinent Labs 04/25: A1c 5.5%, Na 133, Glucose 100, BUN/Cr 21/1.67, GFR 34, Tags 152, HDL 38, Hgb/ Hct 10.5/31.4 Nutritional Hx/Data Height 5 ft 9 in Height (Calculated Centimeters) 175.3 Current Weight (lbs) 142 lb Weight (Calculated Kilograms) 64.4 Weight (Calculated Grams) 34340.1 [place] Body Weight 145 LB (65.91 kg) % [place] Body Weight 98 Body Mass Index (BMI) 20.9 Weight Status Approriate GI Symptoms Last BM 04/30 x1 Skin Integrity/Comment: Skin: WNL, Intact Braulio: 20 Current %PO Good (75-100%) Estimated Nutritional Goals BEE in Kcals: Using Current wt Calories/Kcals/Kg 25-30 Kcals Calculated 9641-4121 Protein: Using Current wt Protein g/k.0-1.2 Protein Calculated 65-80 Fluid: ml 6141-5684 ml (25-30 ml/kg) Nutritional Problem 1. Problem Problem Altered nutrition related labs Etiology r/t renal dysfunction Signs/Symptoms: aeb Hx ARF and labs (04/25): BUN/Cr 21/1.67, GFR 34. Malnutrition Related to Morbid Obesity Malnutrition related to morbid obesity No Intervention/Recommendation Comments Continue Mechanical Soft, [place] diet as tolerated. Expected Outcomes/Goals Expected Outcomes/Goals 1.PO intake to continue to meet >75% of estimated nutritional needs. 2.Monitor PO intake, wt, nutrition related labs, and skin integrity. 3.F/U as low risk in 7-10 days , 05/07-05/09.
== END 2019-05-16 17:00 | DRG 885 ==
LOC: GERO 22:25
PROVIDERS: ADMIT Psychiatry & Neurology Psychiatry; ATTEND Psychiatry & Neurology Psychiatry
DX: F31.9 Bipolar disorder, unspecified (principal); N17.9 Acute kidney failure, unspecified; F41.9 Anxiety disorder, unspecified; I10 Essential (primary) hypertension; D64.9 Anemia, unspecified; Z79.899 Other long term (current) drug therapy; M19.90 Unspecified osteoarthritis, unspecified site
CPT/HCPCS: 82948-90; 83036-90; 90899; G0410; J7051; Z7610